=== PATIENT | male | born 1950 | race Caucasian/White ===

== ENCOUNTER 2018-07-28 07:11 | Inpatient (IN) | payer OTHER ==
[~2018-07-28] VITALS: Ht 170.2 cm; Wt 88.0 kg
[2018-07-28] MEDS ORDERED: PANTOPRAZOLE SODIUM 40 MG VIAL ONE (07:58)
[2018-07-28] MEDS ORDERED: ONDANSETRON 4 MG/2 ML VIAL ONE (07:58)
[2018-07-28] MEDS ORDERED: ONDANSETRON 4 MG/2 ML VIAL IV ONE (08:00)
[2018-07-28] MEDS ORDERED: IV NORMAL SALINE 1000 ML BAG IV ONE (08:00)
[2018-07-28] MEDS ORDERED: PANTOPRAZOLE SODIUM 40 MG VIAL IV ONE (08:00)
[2018-07-28] MEDS ORDERED: TRAZ-182 PO (08:15)
[2018-07-28] MEDS ORDERED: CITA10TA17 PO (08:15)
[2018-07-28] MEDS ORDERED: CETI-102 PO (08:15)
[2018-07-28] MEDS ORDERED: PANT40TA2 PO (08:15)
[2018-07-28] MEDS ORDERED: ALBU6.7H IH (08:15)
[2018-07-28] MEDS ORDERED: FURO-152 PO (08:15)
[2018-07-28] MEDS ORDERED: INSU100I4 SQ ×2 (08:15)
[2018-07-28] MEDS ORDERED: CLON1PAT TD (08:15)
[2018-07-28] MEDS ORDERED: CARV12.52 PO (08:15)
[2018-07-28] MEDS ORDERED: CHOL200013 PO (08:15)
[2018-07-28] MEDS ORDERED: GABA-534 PO (08:15)
[2018-07-28] MEDS ORDERED: LISI40TA4 PO (08:15)
[2018-07-28] MEDS ORDERED: HYDR-4076 PO (08:15)
[2018-07-28] MEDS ORDERED: METO-295 PO (08:15)
[2018-07-28] MEDS ORDERED: CLOB15CR10 TOP (08:15)
[2018-07-28] MEDS ORDERED: ASCO500C18 PO (08:15)
[2018-07-28] MEDS ORDERED: SUCR1TAB31 PO (08:15)
[2018-07-28] MEDS ORDERED: INSU100C SQ (08:15)
[2018-07-28] MEDS ORDERED: AMLO10TA6 PO (08:15)
[2018-07-28] MEDS ORDERED: DIPH50CA37 PO (08:15)
[2018-07-28] MEDS ORDERED: MAGN400O6 PO (08:15)
[2018-07-28] MEDS ORDERED: ATOR80TA PO (08:15)
[2018-07-28] MEDS ORDERED: CLOP75TA15 PO (08:15)
[2018-07-28] MEDS ORDERED: ASPI81TA31 PO (08:15)
[2018-07-28] MEDS ORDERED: DOCU-141 PO (08:15)
[2018-07-28] MEDS ORDERED: MORP15TA PO (08:15)
[2018-07-28] MEDS ORDERED: ONDA4TAB5 PO (08:15)
[2018-07-28] MEDS ORDERED: FERR325T22 PO (08:15)
[2018-07-28 08:16] LABS: BASOPHILS # (AUTO) 0.1 K/uL (0.0-8.0); BASOPHILS % (AUTO) 0.4 % (0.0-2.0); HEMOGLOBIN 13.4 g/dL (12.5-16.3); LYMPHOCYTES # (AUTO) 1.3 K/uL (20.0-40.0); LYMPHOCYTES % (AUTO) 6.5 % (20.5-51.5); MEAN CORPUSCULAR HEMOGLOBIN 28.7 uug (23.8-33.4); MEAN CORPUSCULAR HGB CONC 34 g/dL (32.5-36.3); MEAN CORPUSCULAR VOLUME 83.6 fL (73.0-96.2); MONOCYTES # (AUTO) 1.5 K/uL (2.0-10.0); MONOCYTES % (AUTO) 7.5 % (0.0-11.0); NEUTROPHILS # (AUTO) 17.3 K/uL (1.8-8.9); NEUTROPHILS % (AUTO) 85.6 % (38.5-71.5); PLATELET COUNT (AUTO) 351 K/uL (152-348); RED BLOOD CELL COUNT(AUTO) 4.67 MIL/uL (4.06-5.63); WHITE BLOOD COUNT (AUTO) 20.2 K/uL (3.6-10.2)
--- NOTE | 2018-07-28 08:21 | NUR ---
PT SAYS THAT HE FEELS MUCH BETTER.
[2018-07-28 08:24] LABS: CREATININE 1.8 mg/dL (0.6-1.3); POTASSIUM 3.8 mmol/L (3.5-5.1)
[2018-07-28 08:30] LABS: BILIRUBIN,DIRECT 0.1 mg/dL (0.0-0.2); BILIRUBIN,TOTAL 0.4 mg/dL (0.2-1.0); TOTAL PROTEIN, SERUM 9.2 g/dL (6.4-8.2)
[2018-07-28] MEDS ORDERED: INSULIN REGULAR, HUMAN 300 UNIT/3 ML VIAL IV ONE (08:30)
[2018-07-28] MEDS ORDERED: INSULIN REGULAR, HUMAN 300 UNIT/3 ML VIAL ONE (08:39)
[2018-07-28] MEDS ORDERED: ONDANSETRON 4 MG/2 ML VIAL IV PRN ×2 (10:15→15:45)
[2018-07-28] MEDS ORDERED: ACETAMINOPHEN 650 MG/20.3 ML LIQUID UDC PO PRN (10:15)
[2018-07-28] MEDS ORDERED: DEXTROSE 50% 50 ML DISP.SYRIN IV PRN (10:15)
[2018-07-28] MEDS ORDERED: ALBUTEROL SULFATE 8 GM HFA.AER.AD IH SCH (10:15)
--- NOTE | 2018-07-28 10:22 | NUR ---
KO=[id number]
--- NOTE | 2018-07-28 10:30 | NUR ---
Pt admitted to Telemetry unit in fair condition. Admitted for Upper GI Bleed under the care of Dr. Peraza from [facility]. CC nausea and vomiting x5 days and coffee ground emesis last night. No episode of vomiting since arrival to unit, just nausea with episodes of spitting up saliva. On 2L via n/c O2 satting at 98%. Noted with generalized tattoos, several scabbed over rashes on diana lower extremities. All safety precautions in place at this time. Oriented to unit, room, and call light in Canadian via staff translation. Will continue to monitor for change.
--- NOTE | 2018-07-28 10:31 | NUR ---
PT TRANSFERED TO FLOOR IN STABLE CONDITION.
[2018-07-28] MEDS ORDERED: ALBUTEROL SULFATE 2.5 MG/3 ML NEBU NEB PRN (10:45)
[2018-07-28] MEDS: IV D5 1/2 NS 1000 ML 1,000 ML IV PRN (11:19)
[2018-07-28 11:21] VITALS: BP 134/87
[2018-07-28] MEDS: BLOOD SUGAR DIAGNOSTIC 1 EACH STRIP VI SCH ×3 (11:34→21:00)
[2018-07-28] MEDS: SUCRALFATE 1 G TABLET PO SCH ×3 (11:42→20:59)
[2018-07-28] MEDS ORDERED: SIMETHICONE 80 MG TAB.CHEW PO PRN (12:30)
--- NOTE | 2018-07-28 12:30 | NUR ---
Pt FSBS result 202mg/dl. Offered the 6units Regular Insulin coverage per s/s. Pt refused. Per pt he will not eat lunch as he cannot tolerate it right now due to his nausea. Will administer Zofran IV.
[2018-07-28] MEDS: GABAPENTIN 300 MG CAPSULE PO SCH ×2 (13:39→16:40)
--- NOTE | 2018-07-28 14:54 | NUR ---
Pt seen and examined by Lynne Ivy NP with new orders noted and carried out.
[2018-07-28] MEDS ORDERED: MAGNESIUM CITRATE 296 ML BOTTLE PO STA (15:18)
[2018-07-28] MEDS ORDERED: POLYETHYLENE GLYCOL 3350 238 GM POWDER PO STA (15:25)
[2018-07-28] MEDS ORDERED: FLEET ENEMA 133 ML BOTTLE RC PRN (15:30)
[2018-07-28] MEDS ORDERED: METOCLOPRAMIDE HCL 10 MG/2 ML VIAL IV PRN (15:30)
[2018-07-28 15:49] VITALS: BP 160/79
[2018-07-28] MEDS ORDERED: GOLYTELY 4000 ML BOTTLE PO ONE (16:00)
--- NOTE | 2018-07-28 17:00 | NUR ---
Notified pt that his FSBS result is 263 for 9 units Regular Insulin coverage. Pt refused the insulin as he doesn't think he will eat any of his clear liquid dinner. Will monitor for s/s of hypo/hyperglycemia.
[2018-07-28] MEDS: CARVEDILOL 12.5 MG TABLET PO SCH (17:36)
[2018-07-28] MEDS: CLOBETASOL PROPIONATE 0.05% CREAM 15 GM TUBE TOP SCH (17:37)
[2018-07-28 19:28] VITALS: BP 136/71
--- NOTE | 2018-07-28 20:00 | NUR ---
Received pt sitting up in bed. Alert and oriented x3. Ukrainian speaking. Left sided weakness noted. Tele SR with HR 80. O2 sat 96% via 2L NC. Pt complains of nausea but no emesis present. Pt aware of EGD and colonoscopy procedure in AM, consent is signed. NPO after midnight noted. Pt denies pain, SOB or severe headache. Safety precautions and comfort measures implemented. Bed on low locked position. Tyrone light within reach. Will continue to monitor closely.
[2018-07-28] MEDS ORDERED: hydrALAZINE HCL 25 MG TABLET PO PRN (20:45)
[2018-07-28] MEDS: ATORVASTATIN 40 MG TABLET PO SCH (20:59)
[2018-07-28] MEDS ORDERED: TRAZODONE 50 MG TABLET PO SCH (21:00)
[2018-07-28] MEDS: INSULIN REGULAR, HUMAN 300 UNITS/3 ML VIAL SQ PRN (21:02)
--- NOTE | 2018-07-28 23:30 | NUR ---
Pt awake, alert and oriented x3. Tele SR with HR of 80. O2 sat 96% NC 2L.Pt continues to complain of nausea, no presence of emesis noted. Zofran med was given x1 with minimal effect. Pt is unable to tolerate magnesium citrate and polyethylene glycol due to nausea. Dr. WORTHINGTON notified, awaiting call back. Will continue to monitor. Addendum: 07/29/18 at 0605 by SHIRLENE EDWARDS RN At 0030, followed up call from Dr. Worthington. Awaiting call back. Will continue to monitor pt.
[2018-07-28 23:46] VITALS: BP 157/85
[2018-07-29 00:55] VITALS: BP 111/72
[2018-07-29 00:57] VITALS: BP 138/84
[2018-07-29 03:43] VITALS: BP 144/71
[2018-07-29 04:37] LABS: *BILIRUBIN,URIN NEGATIVE (NEGATIVE); *BLOOD, URINE NEGATIVE (NEGATIVE); *COLOR,URINE YELLOW (YELLOW); *KETONES,URINE NEGATIVE (NEGATIVE); *PROTEIN,URINE NEGATIVE (NEGATIVE); *UROBILINOGEN,URINE 0.2 E.U./dl (NORMAL); LEUKOCYTE ESTERASE ,URINE 1+ (NEGATIVE); NITRITE, URINE NEGATIVE (NEGATIVE); PH,URINE 6.5 (5.0-8.0)
[2018-07-29 04:41] LABS: *CLARITY,URINE HAZY (CLEAR); UGLUCOSE 1+ (NEGATIVE)
[2018-07-29 04:58] LABS: BACTERIA,URINE FEW /HPF (NONE SEEN); RBC,URINE 0-3 /HPF (0-3); RENAL EPITHELIAL CELLS,URINE FEW /LPF (NONE SEEN); SQUAMOUS EPITHELIAL CELL,UR MODERATE /HPF (NONE SEEN)
[2018-07-29 04:59] LABS: TRANSITIONAL EPI CELLS,URINE FEW /LPF (NONE SEEN)
--- NOTE | 2018-07-29 06:05 | NUR ---
Still awaiting call back from Dr. MCGRAW regarding noncompliance to bowel prep for EGD and colonoscopy in the AM. Pt slept intermittently throughout the night. Tele noted to be SR with Hr 64. O2 sat 97% via 2l NC. Pt denies pain or SOB. Blood pressure controlled during the night. Pt shows no s/s of acute distress at this time. Safety precautions maintained during shift. Call light within reach. Will endorse plan of care to upcoming nurse.
[2018-07-29] MEDS: SUCRALFATE 1 G TABLET PO SCH (06:59)
[2018-07-29 07:03] LABS: BASOPHILS % (AUTO) 0.3 % (0.0-2.0); EOSINOPHILS # (AUTO) 0.1 K/uL (0.0-0.7); HEMATOCRIT 34.7 % (36.7-47.1); HEMOGLOBIN 11.8 g/dL (12.5-16.3); LYMPHOCYTES # (AUTO) 2.4 K/uL (20.0-40.0); LYMPHOCYTES % (AUTO) 18.5 % (20.5-51.5); MEAN CORPUSCULAR HEMOGLOBIN 28.4 uug (23.8-33.4); MEAN CORPUSCULAR HGB CONC 34 g/dL (32.5-36.3); MEAN CORPUSCULAR VOLUME 83.7 fL (73.0-96.2); MONOCYTES # (AUTO) 1.3 K/uL (2.0-10.0); MONOCYTES % (AUTO) 9.8 % (0.0-11.0); NEUTROPHILS # (AUTO) 9.2 K/uL (1.8-8.9); NEUTROPHILS % (AUTO) 70.4 % (38.5-71.5); PLATELET COUNT (AUTO) 253 K/uL (152-348); RED BLOOD CELL COUNT(AUTO) 4.15 MIL/uL (4.06-5.63); WHITE BLOOD COUNT (AUTO) 13.1 K/uL (3.6-10.2)
[2018-07-29] MEDS: BLOOD SUGAR DIAGNOSTIC 1 EACH STRIP VI SCH ×4 (07:03→20:33)
[2018-07-29] MEDS: IV D5 1/2 NS 1000 ML 1,000 ML IV PRN (07:12)
[2018-07-29 07:18] LABS: BILIRUBIN,TOTAL 0.5 mg/dL (0.2-1.0); CREATININE 1.7 mg/dL (0.6-1.3); MAGNESIUM 2.7 mg/dL (1.8-2.4); PHOSPHOROUS 4.1 mg/dL (2.5-4.9); POTASSIUM 3.6 mmol/L (3.5-5.1); TOTAL PROTEIN, SERUM 7.5 g/dL (6.4-8.2)
[2018-07-29 07:39] LABS: THYROID STIMULATING HORMONE 2.341 mIU/mL (0.358-3.740)
[2018-07-29] MEDS: CARVEDILOL 12.5 MG TABLET PO SCH ×2 (08:55→17:40)
[2018-07-29] MEDS: PANTOPRAZOLE SODIUM 40 MG VIAL IV SCH ×2 (08:55→17:38)
[2018-07-29] MEDS: AMLODIPINE 10 MG TABLET PO SCH (08:56)
[2018-07-29] MEDS: GABAPENTIN 300 MG CAPSULE PO SCH ×3 (08:56→17:33)
[2018-07-29] MEDS: CLOBETASOL PROPIONATE 0.05% CREAM 15 GM TUBE TOP SCH ×2 (08:56→17:00)
[2018-07-29] MEDS ORDERED: PANTOPRAZOLE SODIUM 40 MG VIAL IV SCH (09:00)
[2018-07-29] MEDS: INSULIN REGULAR, HUMAN 300 UNIT/3 ML VIAL SQ PRN ×2 (09:56→17:24)
[2018-07-29 11:22] VITALS: BP 137/86
[2018-07-29] MEDS ORDERED: FENTANYL CITRATE 100 MCG/2 ML AMPUL ONE (11:43)
[2018-07-29] MEDS ORDERED: MIDAZOLAM HCL 2 MG/2 ML VIAL ONE (11:44)
[2018-07-29] MEDS: CITALOPRAM 10 MG TABLET PO SCH (15:13)
[2018-07-29] MEDS: CEFTRIAXONE 1 G in IV DEXTROSE 5% 50 ML IV SCH (15:13)
[2018-07-29 15:38] VITALS: BP 133/62
[2018-07-29] MEDS ORDERED: PROPOFOL 200 MG/20 ML BOTTLE IV ONE (16:09)
[2018-07-29] MEDS: SUCRALFATE 1 G/10 ML LIQUID UDC PO SCH ×2 (17:33→20:32)
--- NOTE | 2018-07-29 19:45 | NUR ---
Received patient in bed, awake, alert and oriented x4. Speech is clear, normal rate and able to make known of his needs. Complained of pain in the abdomen 5/10, aching. Medicated with [place] 1 tab. SR on the monitor. Vital sign WNL. Compliant with all PO medication. Will continue to monitor behavior and medication effectiveness.
[2018-07-29 20:22] VITALS: BP 139/66
[2018-07-29] MEDS: ATORVASTATIN 40 MG TABLET PO SCH (20:32)
[2018-07-29] MEDS: MUPIROCIN 2% OINT 22 GM TUBE NS SCH (20:56)
[2018-07-29] MEDS ORDERED: TRAZODONE 50 MG TABLET PO SCH (21:00)
[2018-07-29] MEDS: INSULIN REGULAR, HUMAN 300 UNITS/3 ML VIAL SQ PRN (21:00)
[2018-07-29] MEDS: HYDROCODONE/APAP 5-325MG TABLET PO PRN (21:02)
[2018-07-30 00:03] VITALS: BP 156/68
[2018-07-30] MEDS: HYDROCODONE/APAP 5-325MG TABLET PO PRN (03:22)
[2018-07-30 04:12] VITALS: BP 149/81
--- NOTE | 2018-07-30 05:17 | NUR ---
Assumed care from Nurse Bryant; no change from previous assessment; needs attended; continue to monitor; continue plan of care.
[2018-07-30 06:46] LABS: BASOPHILS % (AUTO) 0.3 % (0.0-2.0); EOSINOPHILS # (AUTO) 0.2 K/uL (0.0-0.7); EOSINOPHILS % (AUTO) 1.2 % (0.0-7.0); HEMATOCRIT 32.7 % (36.7-47.1); LYMPHOCYTES # (AUTO) 1.9 K/uL (20.0-40.0); LYMPHOCYTES % (AUTO) 15.3 % (20.5-51.5); MEAN CORPUSCULAR HEMOGLOBIN 28.3 uug (23.8-33.4); MEAN CORPUSCULAR HGB CONC 34 g/dL (32.5-36.3); MEAN CORPUSCULAR VOLUME 83.9 fL (73.0-96.2); MONOCYTES # (AUTO) 1.1 K/uL (2.0-10.0); MONOCYTES % (AUTO) 8.9 % (0.0-11.0); NEUTROPHILS # (AUTO) 9.1 K/uL (1.8-8.9); NEUTROPHILS % (AUTO) 74.3 % (38.5-71.5); PLATELET COUNT (AUTO) 231 K/uL (152-348); RED BLOOD CELL COUNT(AUTO) 3.89 MIL/uL (4.06-5.63); WHITE BLOOD COUNT (AUTO) 12.3 K/uL (3.6-10.2)
[2018-07-30] MEDS: BLOOD SUGAR DIAGNOSTIC 1 EACH STRIP VI SCH ×2 (06:46→11:34)
[2018-07-30] MEDS: SUCRALFATE 1 G/10 ML LIQUID UDC PO SCH ×3 (06:46→16:07)
[2018-07-30 06:50] LABS: CREATININE 1.7 mg/dL (0.6-1.3); POTASSIUM 3.6 mmol/L (3.5-5.1)
--- NOTE | 2018-07-30 07:39 | NUR ---
RECEIVED PATIENT ON BED, RESTING COMFORTABLY. NO DISTRESS NOTED.
[2018-07-30] MEDS: INSULIN REGULAR, HUMAN 300 UNIT/3 ML VIAL SQ PRN ×2 (08:17→11:43)
[2018-07-30] MEDS: PANTOPRAZOLE SODIUM 40 MG VIAL IV SCH (08:23)
[2018-07-30] MEDS: GABAPENTIN 300 MG CAPSULE PO SCH ×2 (08:24→13:30)
[2018-07-30] MEDS: CITALOPRAM 10 MG TABLET PO SCH (08:24)
[2018-07-30] MEDS: CARVEDILOL 12.5 MG TABLET PO SCH (08:25)
[2018-07-30] MEDS: CLOBETASOL PROPIONATE 0.05% CREAM 15 GM TUBE TOP SCH (08:26)
[2018-07-30] MEDS: MUPIROCIN 2% OINT 22 GM TUBE NS SCH (08:26)
[2018-07-30] MEDS: AMLODIPINE 10 MG TABLET PO SCH (08:29)
[2018-07-30 11:21] VITALS: BP 121/77
[2018-07-30] MEDS: IV D5 1/2 NS 1000 ML 1,000 ML IV PRN (11:30)
[2018-07-30] MEDS: CEFTRIAXONE 1 G in IV DEXTROSE 5% 50 ML IV SCH (11:30)
--- NOTE | 2018-07-30 12:00 | NUR ---
AWARE ORDER FOR DISCHARGE, REQUESTED TO EAT LUNCH AND SEE HOW IT WOULD BE, AGREED TO MONITOR.
[2018-07-30] MEDS ORDERED: INFLUENZA VACCINE 2018-2019 0.5 ML DISP.SYRIN IM ONE (14:45)
[2018-07-30] MEDS ORDERED: FLEET ENEMA 133 ML BOTTLE RC STA (14:54)
--- NOTE | 2018-07-30 15:00 | NUR ---
TOLERATED LUNCH, NO COMPLAINT OF NAUSEA, VOMITING. AGREED TO BE DISCHARGED.
[2018-07-30 15:09] VITALS: BP 131/70
--- NOTE | 2018-07-30 15:27 | NUR ---
SEEN BY SANJIV , AWARE SMALL BM BROWN COLOR TODAY. MADE ORDER AND CARRIED OUT
--- NOTE | 2018-07-30 15:48 | NUR ---
HAD MODERATE FORMED BM YELLOW BROWN IN COLOR.
--- NOTE | 2018-07-30 16:10 | NUR ---
LEFT IN FAIR CONDITION , DENIES ACUTE DISTRESS, ANXIOUS TO GO BACK TO ACUTE REHAB.
[2018-07-30] MEDS ORDERED: PANTOPRAZOLE SODIUM 40 MG TABLET.DR PO SCH (16:30)
== END 2018-07-30 16:10 | DRG 242 ==
LOC: ER 07:11 → TELE 10:24 → UNDODISIN 07-30 15:00
PROC: 0DB78ZX Excision of Stomach, Pylorus, Via Natural or Artificial Opening Endoscopic, Diagnostic (ICD-10-PCS; principal; 2018-07-29 11:49)
PROC: 0DB28ZX Excision of Middle Esophagus, Via Natural or Artificial Opening Endoscopic, Diagnostic (ICD-10-PCS; principal; 2018-07-29 11:49)
PROC: 0DB48ZX Excision of Esophagogastric Junction, Via Natural or Artificial Opening Endoscopic, Diagnostic (ICD-10-PCS; principal; 2018-07-29 11:49)
PROC: 0DB98ZX Excision of Duodenum, Via Natural or Artificial Opening Endoscopic, Diagnostic (ICD-10-PCS; principal; 2018-07-29 11:49)
DX: B37.81 Candidal esophagitis (principal); N17.0 Acute kidney failure with tubular necrosis; K59.00 Constipation, unspecified; K92.0 Hematemesis; I50.9 Heart failure, unspecified; I69.354 Hemiplegia and hemiparesis following cerebral infarction affecting left non-dominant side; K31.7 Polyp of stomach and duodenum; Z22.322 Carrier or suspected carrier of Methicillin resistant Staphylococcus aureus; M51.36 Other intervertebral disc degeneration, lumbar region; I11.0 Hypertensive heart disease with heart failure; K29.50 Unspecified chronic gastritis without bleeding; B96.81 Helicobacter pylori [H. pylori] as the cause of diseases classified elsewhere; I70.0 Atherosclerosis of aorta; I25.10 Atherosclerotic heart disease of native coronary artery without angina pectoris; E78.5 Hyperlipidemia, unspecified; E11.65 Type 2 diabetes mellitus with hyperglycemia; J98.11 Atelectasis; K80.20 Calculus of gallbladder without cholecystitis without obstruction; D72.829 Elevated white blood cell count, unspecified; Z99.3 Dependence on wheelchair; Z79.899 Other long term (current) drug therapy; Z79.4 Long term (current) use of insulin; Z79.02 Long term (current) use of antithrombotics/antiplatelets; Z79.82 Long term (current) use of aspirin; E11.51 Type 2 diabetes mellitus with diabetic peripheral angiopathy without gangrene
CPT/HCPCS: 36415; 70030-TC; 71045; 83690; 83735; 84100; 84443; 85025; 85730; 86850; 86900; 86901; 88342; 90686; 93005; 97165; A4217; A4663; C9113; G0378; J0696; J1815; J2250; J2405; J3010; J3490; J7030; J7060

== ENCOUNTER 2018-11-11 20:51 | Inpatient (IN) | payer MEDICAID, OTHER ==
[~2018-11-11] VITALS: Ht 170.2 cm; Wt 93.0 kg
[~2018-11-11 20:51] MED LIST: ALBU6.7H IH; AMLO10TA7 PO; ASCO500C18 PO; ASPI81TA31 PO; ATOR80TA PO; CARV12.52 PO; CETI-102 PO; CHOL200013 PO; CITA10TA17 PO; CLOB15CR10 TOP; CLON1PAT TD; CLOP75TA15 PO; DIPH50CA37 PO; DOCU-141 PO; FERR325T22 PO; FURO-152 PO; GABA-534 PO; HYDR-4076 PO; INSU100C SQ; INSU100I4 SQ; LISI40TA4 PO; MAGN400O6 PO; METO-295 PO; MORP15TA PO; ONDA4TAB5 PO; PANT40TA2 PO; SUCR1TAB31 PO; TRAZ-182 PO
--- NOTE | 2018-11-11 21:00 | NUR ---
Pt. BIB EMS for 6 cm circular R upper back mass, A/Ox4, pt. is Belarusian speaking, denies CP/BECKHAM/F/C/N/V,
[2018-11-11 21:21] LABS: BASOPHILS # (AUTO) 0.1 K/uL (0.0-8.0); BASOPHILS % (AUTO) 0.5 % (0.0-2.0); EOSINOPHILS # (AUTO) 0.4 K/uL (0.0-0.7); EOSINOPHILS % (AUTO) 3.4 % (0.0-7.0); HEMATOCRIT 36.2 % (36.7-47.1); HEMOGLOBIN 12.2 g/dL (12.5-16.3); LYMPHOCYTES # (AUTO) 2.1 K/uL (20.0-40.0); LYMPHOCYTES % (AUTO) 16.1 % (20.5-51.5); MEAN CORPUSCULAR HEMOGLOBIN 27.4 uug (23.8-33.4); MEAN CORPUSCULAR HGB CONC 34 g/dL (32.5-36.3); MEAN CORPUSCULAR VOLUME 81.3 fL (73.0-96.2); MONOCYTES % (AUTO) 7.7 % (0.0-11.0); NEUTROPHILS # (AUTO) 9.4 K/uL (1.8-8.9); NEUTROPHILS % (AUTO) 72.3 % (38.5-71.5); PLATELET COUNT (AUTO) 229 K/uL (152-348); RED BLOOD CELL COUNT(AUTO) 4.46 MIL/uL (4.06-5.63)
[2018-11-11 21:25] LABS: CARBON DIOXIDE 29 mmol/L (21-32); CHLORIDE 99 mmol/L (98-107); CREATININE 0.9 mg/dL (0.6-1.3); GLUCOSE 262 mg/dL (74-106); POTASSIUM 4.1 mmol/L (3.5-5.1); UREA NITROGEN, BLOOD 17 mg/dL (7-18)
[2018-11-11] MEDS ORDERED: HYDR-4384 PO (21:25)
[2018-11-11] MEDS ORDERED: HALO15OI4 TP (21:25)
[2018-11-11] MEDS ORDERED: EMOL1CRE TP (21:25)
[2018-11-11] MEDS ORDERED: ACET325C5 PO (21:27)
[2018-11-11 21:31] LABS: ALANINE AMINOTRANSFERASE 68 U/L (16-63); ALKALINE PHOSPHATASE 193 U/L (50-136); ASPARTATE AMINOTRANSFERASE 26 U/L (15-37); BILIRUBIN,DIRECT < 0.1 mg/dL (0.0-0.2); BILIRUBIN,TOTAL 0.3 mg/dL (0.2-1.0); TOTAL PROTEIN, SERUM 7.7 g/dL (6.4-8.2)
--- NOTE | 2018-11-11 21:50 | NUR ---
Dr. Tabor in w/ pt., for ultrasound,
--- NOTE | 2018-11-11 22:11 | NUR ---
Pt. is wheezing, per Dr. Tabor called respiratory for breathing treatment,
[2018-11-11] MEDS ORDERED: MAGNESIUM SULFATE 2 GM in IV DEXTROSE 5% 100 ML IV ONE (22:15)
[2018-11-11] MEDS ORDERED: ALBUTEROL SULFATE 2.5 MG/3 ML NEBU NEB ONE (22:15)
[2018-11-11] MEDS ORDERED: methylPREDNISolone SOD SUCC 125 MG/2 ML VIAL IV ONE (22:15)
[2018-11-11] MEDS ORDERED: IPRATROPIUM BROMIDE 0.5 MG/2.5 ML NEBU NEB ONE (22:15)
[2018-11-11] MEDS ORDERED: ALBUTEROL SULFATE 2.5 MG/ 0.5 ML NEBU ONE (22:17)
[2018-11-11] MEDS ORDERED: IPRATROPIUM BROMIDE 0.5 MG/2.5 ML NEBU ONE (22:17)
--- NOTE | 2018-11-11 22:29 | NUR ---
RT at bedside for inhalation treatment,
[2018-11-11] MEDS ORDERED: methylPREDNISolone SOD SUCC 125 MG/2 ML VIAL ONE (22:42)
[2018-11-11] MEDS ORDERED: MAGNESIUM SULFATE 1 GM/2 ML VIAL ONE (22:42)
[2018-11-11] MEDS ORDERED: hydrALAZINE HCL 25 MG TABLET PO SCH (23:00)
[2018-11-11] MEDS ORDERED: ONDANSETRON 4 MG/2 ML VIAL IV PRN (23:15)
[2018-11-11] MEDS ORDERED: ACETAMINOPHEN 325 MG TABLET PO PRN (23:15)
[2018-11-11] MEDS ORDERED: DEXTROSE 50% 50 ML DISP.SYRIN IV PRN (23:15)
[2018-11-11] MEDS ORDERED: TEMAZEPAM 15 MG CAPSULE PO PRN (23:15)
[2018-11-11] MEDS ORDERED: Z GUARD REMEDY PASTE 57 GM TUBE TOP PRN (23:15)
[2018-11-11] MEDS ORDERED: MAGNESIUM HYDROXIDE 30 ML LIQUID UDC PO PRN (23:15)
[2018-11-11] MEDS ORDERED: HYDROCODONE/APAP 5-325MG TABLET PO PRN (23:15)
--- NOTE | 2018-11-12 00:20 | NUR ---
Report given to Ivanna
[2018-11-12 00:39] VITALS: BP 172/90
--- NOTE | 2018-11-12 01:14 | NUR ---
Pt. taken off off unit via stretcher by [place] to admit to med/surg, NAD, IV intact - no s/s infection,
[2018-11-12] MEDS: IV NS 1000 ML 1,000 ML IV PRN ×2 (01:53→17:29)
--- NOTE | 2018-11-12 02:00 | NUR ---
PATIENT ADMITTED FROM ER VIA RNEY. A/O X4. POLISH SPEAKING BUT ABLE TO MAKE SIMPLE NEEDS KNOWN. DENIES PAIN AT THIS TIME. PATIENT IS PRESENT WITH GENERALIZED RASH, BILATERAL LEGS NOTED WITH SCRATCHES AND SCABS FROM ITCHING. "PER PATIENT, HE STATED THAT WHERE HE CAME FROM, ALL THE RESIDENTS HAVE RASHES TOO AND ARE ITCHING." NOTIFIED NUTTER UP AND ENERGY PROJECTS LEAD. PATIENT PLACED ON CONTACT ISOLATION. PATIENT ON RA SATING 96%. DENIES ANY SOB. ORIENTED TO ROOM AND CALL LIGHT. CALL LIGHT IN REACH. ALL NEEDS ATTENDED. WILL CONTINUE TO MONITOR AND ASSESS.
--- NOTE | 2018-11-12 02:15 | NUR ---
PATIENTS BLOOD PRESSURE 172/90. ALL OTHER VSS. CALLED OUT TO [facility]-DOCTOR OF RADIOLOGY FOR FURTHER ORDERS. PATIENT PLACED ON TELE ORDERED, SR 90'S. WILL CONTINUE TO MONITOR AND ASSESS.
[2018-11-12] MEDS: methylPREDNISolone SOD SUCC 40 MG/ML VIAL IV SCH ×3 (02:18→12:38)
[2018-11-12] MEDS: hydrALAZINE HCL 20 MG/1 ML VIAL IV PRN (02:20)
--- NOTE | 2018-11-12 02:20 | NUR ---
PATIENT GIVEN HYDRALAZINE 10MG IVP PER HOME SERVICE TECHNICIAN FOR BP 172/90. WILL CONTINUE TO MONITOR AND ASSESS.
[2018-11-12] MEDS: ALBUTEROL SULFATE 2.5 MG/ 0.5 ML NEBU NEB PRN ×2 (03:09→23:07)
[2018-11-12] MEDS: IPRATROPIUM BROMIDE 0.5 MG/2.5 ML NEBU NEB PRN ×2 (03:09→23:07)
[2018-11-12] MEDS: MORPHINE SULFATE 4 MG/1 ML DISP.SYRIN IV PRN (03:24)
[2018-11-12 05:36] VITALS: BP 150/76
--- NOTE | 2018-11-12 06:35 | NUR ---
PATIENT AWAKE IN BED. VSS. CHECKED BLOOD SUGAR. RECEIVED 404. CALLED LAB FOR STAT REPEAT DRAW.
[2018-11-12] MEDS: BLOOD SUGAR DIAGNOSTIC 1 EACH STRIP VI SCH ×4 (06:47→20:59)
--- NOTE | 2018-11-12 06:56 | NUR ---
WAITING FOR LAB DRAW RESULTS. HAZARD WASTE HANDLER NOTIFIED.
[2018-11-12 06:58] LABS: BASOPHILS % (AUTO) 0.2 % (0.0-2.0); HEMATOCRIT 35.7 % (36.7-47.1); HEMOGLOBIN 12.1 g/dL (12.5-16.3); LYMPHOCYTES % (AUTO) 7.6 % (20.5-51.5); MEAN CORPUSCULAR HEMOGLOBIN 27.5 uug (23.8-33.4); MEAN CORPUSCULAR HGB CONC 34 g/dL (32.5-36.3); MEAN CORPUSCULAR VOLUME 81.3 fL (73.0-96.2); MONOCYTES # (AUTO) 0.1 K/uL (2.0-10.0); MONOCYTES % (AUTO) 0.6 % (0.0-11.0); NEUTROPHILS # (AUTO) 12.2 K/uL (1.8-8.9); NEUTROPHILS % (AUTO) 91.6 % (38.5-71.5); PLATELET COUNT (AUTO) 223 K/uL (152-348); RED BLOOD CELL COUNT(AUTO) 4.39 MIL/uL (4.06-5.63); WHITE BLOOD COUNT (AUTO) 13.3 K/uL (3.6-10.2)
--- NOTE | 2018-11-12 07:16 | NUR ---
CALLED LAB FOR STAT RESULTS OF BLOOD GLUCOSE. PER SUPERVISORY CIVIL ENGINEER, BLOOD IS STILL RUNNING AND WILL CALL BACK WITH RESULTS. NOTIFIED THIRD LOADER THAT INSULIN HAS NOT BEEN GIVEN, WAITING FOR RESULTS. PATIENT AWAKE IN BED, ASYMPTOMATIC. ENDORSED TO RN.
[2018-11-12 07:27] LABS: BILIRUBIN,TOTAL 0.3 mg/dL (0.2-1.0); MAGNESIUM 2.4 mg/dL (1.8-2.4); PHOSPHOROUS 3.6 mg/dL (2.5-4.9); POTASSIUM 4.3 mmol/L (3.5-5.1); TOTAL PROTEIN, SERUM 7.6 g/dL (6.4-8.2)
[2018-11-12] MEDS: CETIRIZINE HCL 10 MG TABLET PO SCH (08:33)
[2018-11-12] MEDS: GABAPENTIN 300 MG CAPSULE PO SCH ×3 (08:34→17:02)
[2018-11-12] MEDS: AMLODIPINE 10 MG TABLET PO SCH (08:34)
[2018-11-12 08:35] VITALS: BP 156/75
[2018-11-12] MEDS: ASPIRIN 81 MG TAB.CHEW PO SCH (08:35)
[2018-11-12] MEDS: CARVEDILOL 12.5 MG TABLET PO SCH ×2 (08:35→17:03)
[2018-11-12] MEDS: INSULIN REGULAR, HUMAN 300 UNIT/3 ML VIAL SQ PRN ×3 (08:37→16:55)
[2018-11-12] MEDS: SUCRALFATE 1 G TABLET PO SCH ×4 (08:42→20:53)
[2018-11-12] MEDS: CITALOPRAM 10 MG TABLET PO SCH (08:42)
[2018-11-12] MEDS ORDERED: INSU100V7 SQ ×2 (08:57)
[2018-11-12] MEDS ORDERED: PANTOPRAZOLE SODIUM 40 MG VIAL IV SCH (09:00)
[2018-11-12] MEDS: INSULIN GLARGINE,HUM 300 UNITS/3 ML CARTRIDGE SQ SCH (09:37)
[2018-11-12 11:50] VITALS: BP 131/60
--- NOTE | 2018-11-12 12:54 | NUR ---
COLLECTED SKIN SCRAPING SPECIMEN, SENT TO LABS
[2018-11-12 15:21] VITALS: BP 144/69
[2018-11-12] MEDS: diphenhydrAMINE 1% CREAM 28.3 GM TUBE TP PRN ×2 (17:01→21:21)
[2018-11-12] MEDS: CEphaleXIN 500 MG CAPSULE PO SCH ×2 (17:02→21:07)
--- NOTE | 2018-11-12 18:58 | NUR ---
RECEIVED PATIENT AO2 WITH IV AT RIGHT HAND WITH G20 WITH NS AT 75ML/HR ON CONTACT ISOLATION , PATIENT HAD SKIN SCRAPPING DONE BY DR. GARCIA, AND SPECIMEN WAS SENT TO LABS, PATIENT WERE COMPLIANT TO MEDICATION, AND SPEAK AND NEEDED INFORMATION TECHNOLOGY TEACHER , KEPT COMFORTABLE , HOB ELEVATED AT ALL TIMES, ALL NEEDS MET WILL CONTINUE MONITOR
--- NOTE | 2018-11-12 19:30 | NUR ---
Received patient awake in bed, noted with air mattress in place. Patient is alert and oriented x 4 but speaks Hungarian only. Patient has an IV access at the right hand to ongoing IV fluid, infusing well. Patient on contact isolation, r/o scabies, skin scrape specimen was sent this morning. Noted rashes, scratch dempsey on both legs and scar was seen at sacral area. Noted sinus rhythm on tele monitor. Per day shift, patient had elevated blood sugars all day and is on aggressive insulin sliding scale. Bed in low position, locked, side rails up x 2, call light within reach. Noise and lights subdued. Will continue to monitor.
[2018-11-12 20:25] VITALS: BP 152/86
[2018-11-12] MEDS: TRAZODONE 50 MG TABLET PO SCH (20:53)
[2018-11-12] MEDS: ATORVASTATIN 40 MG TABLET PO SCH (20:53)
[2018-11-12] MEDS: INSULIN REGULAR, HUMAN 300 UNITS/3 ML VIAL SQ PRN (21:00)
[2018-11-12] MEDS ORDERED: INSULIN GLARGINE,HUM 300 UNITS/3 ML CARTRIDGE SQ SCH (21:00)
[2018-11-13 00:06] VITALS: BP 140/72
[2018-11-13] MEDS: MORPHINE SULFATE 4 MG/1 ML DISP.SYRIN IV PRN ×4 (01:08→21:06)
[2018-11-13 05:51] LABS: BASOPHILS % (AUTO) 0.1 % (0.0-2.0); HEMATOCRIT 33.4 % (36.7-47.1); HEMOGLOBIN 11.1 g/dL (12.5-16.3); LYMPHOCYTES # (AUTO) 1.4 K/uL (20.0-40.0); LYMPHOCYTES % (AUTO) 9.4 % (20.5-51.5); MEAN CORPUSCULAR HGB CONC 33 g/dL (32.5-36.3); MEAN CORPUSCULAR VOLUME 81.4 fL (73.0-96.2); MONOCYTES % (AUTO) 6.8 % (0.0-11.0); NEUTROPHILS # (AUTO) 12.3 K/uL (1.8-8.9); NEUTROPHILS % (AUTO) 83.7 % (38.5-71.5); PLATELET COUNT (AUTO) 213 K/uL (152-348); RED BLOOD CELL COUNT(AUTO) 4.11 MIL/uL (4.06-5.63); WHITE BLOOD COUNT (AUTO) 14.7 K/uL (3.6-10.2)
[2018-11-13 05:52] VITALS: BP 140/69
[2018-11-13 06:14] LABS: MAGNESIUM 2.3 mg/dL (1.8-2.4); PHOSPHOROUS 3.7 mg/dL (2.5-4.9); POTASSIUM 4.2 mmol/L (3.5-5.1)
[2018-11-13] MEDS: CEphaleXIN 500 MG CAPSULE PO SCH ×3 (06:15→22:33)
[2018-11-13] MEDS: IV NS 1000 ML 1,000 ML IV PRN ×2 (06:20→21:00)
--- NOTE | 2018-11-13 06:30 | NUR ---
Patient slept intermittently throughout the night. On room air, tolerated. IV access at right hand, still patent and intact. Contact isolation observed. No recurrence of pain after morphine injection. Breathing treatment provided by respiratory therapist as needed.Noted sinus rhythm on tele monitor. Attended all needs. Ensured safety and comfort.
[2018-11-13] MEDS: SUCRALFATE 1 G TABLET PO SCH ×4 (06:33→20:39)
[2018-11-13] MEDS: BLOOD SUGAR DIAGNOSTIC 1 EACH STRIP VI SCH ×4 (06:33→20:46)
--- NOTE | 2018-11-13 07:15 | NUR ---
RECEIVED REPORT FROM SHAKE LOADER NURSE, PATIENT IN BED AWAKE, NO DISTRESS NOTED AT THIS TIME, BED IN LOW POSITION, SIDE RAILS UPX2, BED ALARM ON.
[2018-11-13] MEDS: predniSONE 20 MG TABLET PO SCH (08:52)
[2018-11-13] MEDS: GABAPENTIN 300 MG CAPSULE PO SCH ×3 (09:05→16:42)
[2018-11-13] MEDS: ASPIRIN 81 MG TAB.CHEW PO SCH (09:05)
[2018-11-13] MEDS: PANTOPRAZOLE SODIUM 40 MG TABLET.DR PO SCH (09:05)
[2018-11-13] MEDS: CITALOPRAM 10 MG TABLET PO SCH (09:05)
[2018-11-13] MEDS: CETIRIZINE HCL 10 MG TABLET PO SCH (09:05)
[2018-11-13] MEDS: CARVEDILOL 12.5 MG TABLET PO SCH ×2 (09:10→16:42)
[2018-11-13] MEDS: AMLODIPINE 10 MG TABLET PO SCH (09:10)
[2018-11-13] MEDS: INSULIN REGULAR, HUMAN 300 UNIT/3 ML VIAL SQ PRN ×3 (09:13→16:44)
[2018-11-13] MEDS: INSULIN GLARGINE,HUM 300 UNITS/3 ML CARTRIDGE SQ SCH (09:14)
[2018-11-13 11:42] VITALS: BP 169/86
[2018-11-13] MEDS: POLYVINYL ALCOHOL OPHT DROPS 15 ML BOTTLE EACHEYE PRN (17:04)
[2018-11-13 17:23] VITALS: BP 168/77
--- NOTE | 2018-11-13 18:49 | NUR ---
PATIENT HAS BEEN COOPERATIVE WITH CARE, ALL NEEDS MET, PAIN MEDICATION GIVEN ONCE PATIENT REPORTED BACK PAIN. NO FURTHER DISTRESS THROUGH THE REST OF SHIFT. PATIENT IN BED, BED IN LOW POSITION, SIDE RAILS UP X2. BED ALARM ON.
[2018-11-13] MEDS: ALBUTEROL SULFATE 2.5 MG/ 0.5 ML NEBU NEB PRN (19:00)
[2018-11-13] MEDS: IPRATROPIUM BROMIDE 0.5 MG/2.5 ML NEBU NEB PRN (19:00)
--- NOTE | 2018-11-13 19:25 | NUR ---
Received patient awake in bed, noted with air mattress in place. Patient is alert and oriented x 4 but speaks Kyrgyz only. Patient has an IV access at the right hand to ongoing IV fluid, infusing well. Patient on contact isolation, r/o scabies. Noted sinus rhythm on tele monitor. Bed in low position, locked, side rails up x 2, call light within reach. Noise and lights subdued. Will continue to monitor.
[2018-11-13 20:20] VITALS: BP 131/86
[2018-11-13] MEDS: TRAZODONE 50 MG TABLET PO SCH (20:39)
[2018-11-13] MEDS: ATORVASTATIN 40 MG TABLET PO SCH (20:39)
[2018-11-13] MEDS: INSULIN REGULAR, HUMAN 300 UNITS/3 ML VIAL SQ PRN (20:50)
[2018-11-13] MEDS ORDERED: INSULIN GLARGINE,HUM 300 UNITS/3 ML CARTRIDGE SQ SCH (21:00)
[2018-11-14] VITALS: BP 150/79
[2018-11-14 04:00] VITALS: BP 174/85
[2018-11-14] MEDS: MORPHINE SULFATE 4 MG/1 ML DISP.SYRIN IV PRN ×2 (05:15→10:17)
[2018-11-14] MEDS: PANTOPRAZOLE SODIUM 40 MG TABLET.DR PO SCH (06:05)
[2018-11-14] MEDS: CEphaleXIN 500 MG CAPSULE PO SCH ×2 (06:05→13:13)
--- NOTE | 2018-11-14 06:27 | NUR ---
Patient able to sleep well after taking restoril. On room air, tolerated. IV access at right hand, still patent and intact. Contact isolation observed. With complaints of pain, prn pain medication given.No shortness of breath noted.Noted had episode of sinus bradycardia for a few seconds while asleep but currently on sinus rhythm on tele monitor. Blood pressure is elevated at 165/90, noted patient has due coreg and norvasc this morning, will endorse to morning shift. Attended all needs. Ensured safety and comfort.
[2018-11-14] MEDS: BLOOD SUGAR DIAGNOSTIC 1 EACH STRIP VI SCH ×2 (06:32→11:46)
[2018-11-14] MEDS: SUCRALFATE 1 G TABLET PO SCH ×2 (06:32→12:27)
[2018-11-14] MEDS: GABAPENTIN 300 MG CAPSULE PO SCH ×2 (08:20→12:27)
[2018-11-14] MEDS: ASPIRIN 81 MG TAB.CHEW PO SCH (08:20)
[2018-11-14] MEDS: predniSONE 20 MG TABLET PO SCH (08:20)
[2018-11-14] MEDS: CITALOPRAM 10 MG TABLET PO SCH (08:20)
[2018-11-14] MEDS: CETIRIZINE HCL 10 MG TABLET PO SCH (08:21)
[2018-11-14] MEDS: INSULIN REGULAR, HUMAN 300 UNIT/3 ML VIAL SQ PRN ×2 (08:30→13:15)
[2018-11-14] MEDS: AMLODIPINE 10 MG TABLET PO SCH (08:32)
[2018-11-14] MEDS: CARVEDILOL 12.5 MG TABLET PO SCH (08:32)
[2018-11-14] MEDS: POLYVINYL ALCOHOL OPHT DROPS 15 ML BOTTLE EACHEYE PRN (08:45)
[2018-11-14] MEDS ORDERED: INSULIN GLARGINE,HUM 300 UNITS/3 ML CARTRIDGE SQ SCH (09:00)
--- NOTE | 2018-11-14 09:04 | NUR ---
Received pt in bed. A/OX4. No acute distress noted tolerating RA. Denies CP or SOB. All due medications given as ordered and tolerated well. RH PIV 20G patent and intact. NSR on tele. On air mattress for pressure redistribution. No s/sx of hypo/hyperglycemia. Noted with elevated BP, given AM coreg and amlodipine will monitor for need of hydralazine. All pt needs attended and met. Kept pt. clean and dry. Safety measures maintained. Call light and all frequently used items in place. Will continue to monitor accordingly.
[2018-11-14 09:09] LABS: BASOPHILS % (AUTO) 0.2 % (0.0-2.0); EOSINOPHILS % (AUTO) 0.2 % (0.0-7.0); HEMATOCRIT 36.5 % (36.7-47.1); LYMPHOCYTES # (AUTO) 2.4 K/uL (20.0-40.0); MEAN CORPUSCULAR HEMOGLOBIN 26.8 uug (23.8-33.4); MEAN CORPUSCULAR HGB CONC 33 g/dL (32.5-36.3); MEAN CORPUSCULAR VOLUME 81.7 fL (73.0-96.2); MONOCYTES % (AUTO) 7.8 % (0.0-11.0); NEUTROPHILS # (AUTO) 9.2 K/uL (1.8-8.9); NEUTROPHILS % (AUTO) 72.8 % (38.5-71.5); PLATELET COUNT (AUTO) 228 K/uL (152-348); RED BLOOD CELL COUNT(AUTO) 4.47 MIL/uL (4.06-5.63); WHITE BLOOD COUNT (AUTO) 12.6 K/uL (3.6-10.2)
[2018-11-14 09:12] LABS: CREATININE 0.8 mg/dL (0.6-1.3); MAGNESIUM 2.2 mg/dL (1.8-2.4); PHOSPHOROUS 3.4 mg/dL (2.5-4.9); POTASSIUM 3.7 mmol/L (3.5-5.1)
[2018-11-14] MEDS: hydrALAZINE HCL 20 MG/1 ML VIAL IV PRN (10:16)
[2018-11-14] MEDS ORDERED: CEPH500C2 PO (11:33)
[2018-11-14] MEDS ORDERED: PRED20TA PO (11:33)
[2018-11-14 11:40] VITALS: BP 144/76
[2018-11-14] MEDS ORDERED: FLUOCINONIDE 0.05% CREAM 30 GM TUBE TP PRN (13:00)
--- NOTE | 2018-11-14 17:22 | NUR ---
Discharge note: Received d/c order from Dr. Maya to d/c pt. to SNF ([facility] Routine round with pt. remained cooperative, A/OX4 with capacity to make decision. Lungs sounds clear to auscultation bilaterally, no respiratory distress. Heart with regular rate and rhythm, abnormal heart sound. NSR on Tele. Abdomen soft, non-tender, bowel sounds present in all 4 quadrants. Skin care rendered. Pictures taken and placed in chart. All belongings are prepared. Lidex cream placed given to pt. per Dr. Maya. Inventory done all belongings accountable for. Instructed resident to follow up with PCP upon discharge. D/C PIV on RH, pt. tolerated procedure well. D/C tele per graphic technician. Pt. teaching provided which include but not limited to meds administration, risk of fall, and skin mgt. No further questions from the pt. about the discharge instructions at this time and verbalized clear understanding. Discharge papers signed by pt. Placed call to SNF to give nursing report, able to touchbase to Eric (medical front desk specialist) but unable to touchbase with any license nurse. Called 4x and was unsuccessful reaching licensed nurse at the time, left Eric phone to unit for nursing staff to call [id number] for report. [id number] [facility], provided report to receiving staff with no further questions. Pt. left via [facility] at 1609 d/c to SNF. made aware of pt.
== END 2018-11-14 16:00 | DRG 202 ==
LOC: ER 20:52 → MED 11-12 00:53 → TELE 11-12 02:00 → MEDSURG3 11-14 11:07 → TELE3 11-14 11:36
PROVIDERS: ADMIT Nurse Practitioner Acute Care; ATTEND Nurse Practitioner Acute Care
DX: J45.901 Unspecified asthma with (acute) exacerbation (principal); J96.01 Acute respiratory failure with hypoxia; I69.354 Hemiplegia and hemiparesis following cerebral infarction affecting left non-dominant side; E11.65 Type 2 diabetes mellitus with hyperglycemia; Z79.4 Long term (current) use of insulin; E11.51 Type 2 diabetes mellitus with diabetic peripheral angiopathy without gangrene; Z86.718 Personal history of other venous thrombosis and embolism; Z79.82 Long term (current) use of aspirin; Z79.02 Long term (current) use of antithrombotics/antiplatelets; E78.5 Hyperlipidemia, unspecified; E11.42 Type 2 diabetes mellitus with diabetic polyneuropathy; F32.9 Major depressive disorder, single episode, unspecified; E66.9 Obesity, unspecified; Z68.38 Body mass index [BMI] 38.0-38.9, adult; Z71.3 Dietary counseling and surveillance; D17.1 Benign lipomatous neoplasm of skin and subcutaneous tissue of trunk; D72.829 Elevated white blood cell count, unspecified; T38.0X5A Adverse effect of glucocorticoids and synthetic analogues, initial encounter; Y92.129 Unspecified place in nursing home as the place of occurrence of the external cause; Z91.19 Patient's noncompliance with other medical treatment and regimen; L08.9 Local infection of the skin and subcutaneous tissue, unspecified; I70.0 Atherosclerosis of aorta; Z79.899 Other long term (current) drug therapy; D63.8 Anemia in other chronic diseases classified elsewhere; Z87.19 Personal history of other diseases of the digestive system; R74.8 Abnormal levels of other serum enzymes
CPT/HCPCS: 36415; 71045; 83735; 84100; 85025; 93005; 94640; 94664; A4663; C9113; G0378; J0360; J1815; J2270; J2920; J2930; J3475; J3590; J7030; J7060; J7512

== ENCOUNTER 2018-11-28 21:17 | Emergency (ER) | payer OTHER ==
[~2018-11-28] VITALS: Ht 180.3 cm; Wt 95.3 kg
[~2018-11-28 21:17] MED LIST changes: +ACET325C5 PO; -ASCO500C18 PO; +CEPH500C2 PO; -CHOL200013 PO; -CLOB15CR10 TOP; -CLON1PAT TD; -CLOP75TA15 PO; -DIPH50CA37 PO; -DOCU-141 PO; +EMOL1CRE TP; -FERR325T22 PO; -FURO-152 PO; +HALO15OI4 TP; +HYDR-4384 PO; -INSU100I4 SQ; +INSU100V7 SQ; -LISI40TA4 PO; -MAGN400O6 PO; -METO-295 PO; -MORP15TA PO; -ONDA4TAB5 PO; +PRED20TA PO
--- NOTE | 2018-11-28 22:00 | NUR ---
Dr. Ellis at bedside for MSE.
[2018-11-28] MEDS ORDERED: LET TOPICAL SOLUTION 8 ML UDC ONE (22:06)
--- NOTE | 2018-11-28 22:10 | NUR ---
Respiratory at bedside.
[2018-11-28] MEDS ORDERED: ALBUTEROL SULFATE 2.5 MG/3 ML NEBU ONE ×2 (22:12→22:47)
[2018-11-28] MEDS ORDERED: ALBUTEROL SULFATE 2.5 MG/3 ML NEBU NEB ONE ×2 (22:15→22:45)
[2018-11-28] MEDS ORDERED: LET TOPICAL SOLUTION 8 ML UDC TP ONE (22:15)
[2018-11-28] MEDS ORDERED: MUPIROCIN 2% OINT 22 GM TUBE TP ONE (22:45)
[2018-11-28] MEDS ORDERED: IPRATROPIUM BROMIDE 0.5 MG/2.5 ML NEBU NEB ONE (22:45)
[2018-11-28] MEDS ORDERED: IPRATROPIUM BROMIDE 0.5 MG/2.5 ML NEBU ONE (22:47)
[2018-11-28] MEDS ORDERED: SULFAMETH/TRIMETH 800/160 MG TABLET PO ONE (23:00)
[2018-11-28] MEDS ORDERED: SULFAMETH/TRIMETH 800/160 MG TABLET ONE (23:05)
[2018-11-28] MEDS ORDERED: MUPIROCIN 2% OINT 22 GM TUBE ONE (23:06)
--- NOTE | 2018-11-28 23:12 | NUR ---
Called Belle, JOCELYNE 0015, Trip#[id number]
--- NOTE | 2018-11-29 00:25 | NUR ---
Patient discharged to home in stable conditon. Written and verbal after care instructions given to [facility] and patient. Patient verbalizes understanding of instructions. Pt out of ER via [facility], VSS, no acute signs of distress, all belongings taken.
[2018-11-29 00:35] VITALS: BP 106/59
== END 2018-11-29 00:35 | disposition home or self-care (01) ==
LOC: ER 21:17
DX: L01.02 Bockhart's impetigo (principal); J45.909 Unspecified asthma, uncomplicated; E78.5 Hyperlipidemia, unspecified; E11.9 Type 2 diabetes mellitus without complications; I10 Essential (primary) hypertension; Z86.2 Personal history of diseases of the blood and blood-forming organs and certain disorders involving the immune mechanism; Z86.73 Personal history of transient ischemic attack (TIA), and cerebral infarction without residual deficits; Z79.4 Long term (current) use of insulin; Z79.82 Long term (current) use of aspirin; Z79.899 Other long term (current) drug therapy
CPT/HCPCS: A4663; J3590

== ENCOUNTER 2019-01-16 17:37 | Emergency (ER) | payer OTHER ==
[~2019-01-16] VITALS: Ht 177.8 cm; Wt 91.6 kg
--- NOTE | 2019-01-16 17:55 | NUR ---
Patient received from ambulance, awake and alert. VS HR 88, bp 130/88, temp 97.2. Patient right thumb red and swollen. Patient co having full body itching. Asim Ross RN
[2019-01-16 18:02] LABS: BASOPHILS # (AUTO) 0.1 K/uL (0.0-8.0); BASOPHILS % (AUTO) 0.5 % (0.0-2.0); EOSINOPHILS # (AUTO) 0.5 K/uL (0.0-0.7); EOSINOPHILS % (AUTO) 5.1 % (0.0-7.0); HEMATOCRIT 34.9 % (36.7-47.1); HEMOGLOBIN 11.7 g/dL (12.5-16.3); LYMPHOCYTES # (AUTO) 1.7 K/uL (20.0-40.0); LYMPHOCYTES % (AUTO) 16.8 % (20.5-51.5); MEAN CORPUSCULAR HEMOGLOBIN 27.3 uug (23.8-33.4); MEAN CORPUSCULAR HGB CONC 34 g/dL (32.5-36.3); MEAN CORPUSCULAR VOLUME 81.2 fL (73.0-96.2); MONOCYTES # (AUTO) 0.8 K/uL (2.0-10.0); MONOCYTES % (AUTO) 7.6 % (0.0-11.0); NEUTROPHILS # (AUTO) 7.1 K/uL (1.8-8.9); PLATELET COUNT (AUTO) 291 K/uL (152-348); WHITE BLOOD COUNT (AUTO) 10.2 K/uL (3.6-10.2)
[2019-01-16 18:07] LABS: CREATININE 0.9 mg/dL (0.6-1.3); POTASSIUM 4.2 mmol/L (3.5-5.1)
[2019-01-16] MEDS ORDERED: CLINDAMYCIN PHOSPHATE 600 MG/4 ML VIAL IM ONE (18:15)
--- NOTE | 2019-01-16 18:15 | NUR ---
EKG done, and Dr Tabor visiting with patient for medical interview.
[2019-01-16] MEDS ORDERED: CLINDAMYCIN PHOSPHATE 600 MG/4 ML VIAL ONE (18:25)
--- NOTE | 2019-01-16 18:25 | NUR ---
Patient with I&D right thumb done at bedside, and redress by Vincenzo OMALLEY assist with redrsg right thumb.
--- NOTE | 2019-01-16 18:37 | NUR ---
CALLED [facility] TO TRANSFER THE PT BACK, ETA [phone], TRIP # [id number]
[2019-01-16] MEDS ORDERED: ALBUTEROL SULFATE 2.5 MG/3 ML NEBU NEB ONE (19:15)
[2019-01-16] MEDS ORDERED: IPRATROPIUM BROMIDE 0.5 MG/2.5 ML NEBU NEB ONE (19:15)
--- NOTE | 2019-01-16 19:17 | NUR ---
RT at bedside for breathing tx
[2019-01-16] MEDS ORDERED: ALBUTEROL SULFATE 2.5 MG/3 ML NEBU ONE (19:19)
[2019-01-16] MEDS ORDERED: IPRATROPIUM BROMIDE 0.5 MG/2.5 ML NEBU ONE (19:19)
--- NOTE | 2019-01-16 20:49 | NUR ---
Transport came to picker and packer patient, patient in stable condition. Report given to Justyna at [facility] and rehab.
[2019-01-16 20:53] VITALS: BP 140/82
== END 2019-01-16 20:54 | disposition home or self-care (01) ==
LOC: ER 17:37
DX: B37.2 Candidiasis of skin and nail (principal); L03.011 Cellulitis of right finger; J45.909 Unspecified asthma, uncomplicated; E78.5 Hyperlipidemia, unspecified; E11.9 Type 2 diabetes mellitus without complications; I10 Essential (primary) hypertension; Z79.82 Long term (current) use of aspirin; Z79.4 Long term (current) use of insulin; Z79.899 Other long term (current) drug therapy
CPT/HCPCS: 10060; 36415; 71045; 80048; 83605; 85025; 87040 ×2; 93005; 94640; 96372; 99284; J3490 ×2; J7060; A4663; J3590

== ENCOUNTER 2021-05-25 09:02 | Emergency (ER) | payer OTHER ==
[~2021-05-25] VITALS: Ht 177.8 cm; Wt 91.6 kg
[~2021-05-25 09:02] MED LIST changes: -ACET325C5 PO; +ACET325C7 PO; -ALBU6.7H IH; +ALBU6.7H9 IH; +AMLO10TA59 PO; -AMLO10TA7 PO; -CETI-102 PO; +CETI-90 PO; -HYDR-4076 PO; +HYDR-894 PO
--- NOTE | 2021-05-25 09:37 | NUR ---
Dr Ellis at the bedside for MSE.
[2021-05-25] MEDS ORDERED: PANTOPRAZOLE SODIUM 40 MG VIAL IV ONE (09:45)
[2021-05-25] MEDS ORDERED: IV NORMAL SALINE 1000 ML BAG IV ONE (09:45)
[2021-05-25] MEDS ORDERED: ONDANSETRON 4 MG/2 ML VIAL IV ONE (09:45)
[2021-05-25 09:52] LABS: HEMATOCRIT 31.1 % (36.7-47.1); MEAN CORPUSCULAR HEMOGLOBIN 28.1 uug (23.8-33.4); MEAN CORPUSCULAR VOLUME 83.5 fL (73.0-96.2); PLATELET COUNT (AUTO) 360 K/uL (152-348)
[2021-05-25 09:58] LABS: CREATININE 1.2 mg/dL (0.6-1.3); POTASSIUM 4.6 mmol/L (3.5-5.1)
[2021-05-25] MEDS ORDERED: PANTOPRAZOLE SODIUM 40 MG VIAL ONE (09:59)
[2021-05-25] MEDS ORDERED: ONDANSETRON 4 MG/2 ML VIAL ONE (09:59)
[2021-05-25 10:04] LABS: BILIRUBIN,DIRECT 0.1 mg/dL (0.0-0.2); BILIRUBIN,TOTAL 0.2 mg/dL (0.2-1.0); TOTAL PROTEIN, SERUM 8.3 g/dL (6.4-8.2)
[2021-05-25] MEDS ORDERED: BISA10SU61 RC (10:07)
[2021-05-25] MEDS ORDERED: SENN-261 PO (10:07)
[2021-05-25] MEDS ORDERED: CARV25TA PO (10:07)
[2021-05-25] MEDS ORDERED: DEXT15DR6 EACHEYE (10:07)
[2021-05-25] MEDS ORDERED: APIX5TAB PO (10:07)
[2021-05-25] MEDS ORDERED: OMEG-153 PO (10:07)
[2021-05-25] MEDS ORDERED: CLON0.3P TD (10:07)
[2021-05-25] MEDS ORDERED: SIME80TA15 PO (10:07)
[2021-05-25] MEDS ORDERED: FERR325T28 PO (10:07)
[2021-05-25] MEDS ORDERED: ALBU18HF2 INH (10:07)
[2021-05-25] MEDS ORDERED: POLY119P2 PO (10:07)
[2021-05-25] MEDS ORDERED: ZALE5CAP2 PO (10:07)
[2021-05-25] MEDS ORDERED: MELA5TAB PO (10:07)
[2021-05-25] MEDS ORDERED: LISI20TA30 PO (10:07)
[2021-05-25] MEDS ORDERED: DOCU250C14 PO (10:07)
--- NOTE | 2021-05-25 10:22 | NUR ---
Pt back from CT scan, C/O back pain, reposition for comfort.
[2021-05-25] MEDS ORDERED: MORPHINE SULFATE 2 MG/1 ML DISP.SYRIN ONE (10:35)
[2021-05-25] MEDS ORDERED: MORPHINE SULFATE 2 MG/1 ML DISP.SYRIN IV ONE (10:45)
--- NOTE | 2021-05-25 11:10 | NUR ---
Patient is resting comfortably in bed with eyes closed, NAD noted.
[2021-05-25 14:26] LABS: HEMATOCRIT 32.2 % (36.7-47.1)
[2021-05-25] MEDS ORDERED: HYDROCODONE/APAP 10-325 MG TABLET PO ONE (14:30)
[2021-05-25] MEDS ORDERED: HYDROCODONE/APAP 10-325 MG TABLET ONE (14:40)
[2021-05-25] MEDS ORDERED: hydrALAZINE HCL 20 MG/1 ML VIAL IV ONE (14:45)
[2021-05-25 14:48] LABS: *OCCULT BLOOD STOOL NEGATIVE (NEGATIVE)
[2021-05-25] MEDS ORDERED: hydrALAZINE HCL 20 MG/1 ML VIAL ONE (14:52)
--- NOTE | 2021-05-25 14:55 | NUR ---
Called for transfer 1st available time 2129.
--- NOTE | 2021-05-25 15:10 | NUR ---
Able to get an earlier transfer for pt, ETA 1615.
[2021-05-25] MEDS ORDERED: hydrALAZINE HCL 25 MG TABLET ONE (16:11)
--- NOTE | 2021-05-25 16:35 | NUR ---
IV removed. Catheter intact and site benign. Pressure and 4x4 gauze applied to site. No bleeding noted.
--- NOTE | 2021-05-25 16:40 | NUR ---
Report given to knowledge engineer, Pt left Er in stable condition. All belongings taken w/ PT.
[2021-05-25 16:48] VITALS: BP 171/78
--- NOTE | 2021-05-25 16:48 | NUR ---
Note junieone in ED - 05/25/21 at 1648 by XIOMARA IV removed. Catheter intact and site benign. Pressure and 4x4 gauze applied to site. No bleeding noted.
== END 2021-05-25 16:45 ==
LOC: ER 09:02
DX: R11.10 Vomiting, unspecified (principal); I10 Essential (primary) hypertension; E78.5 Hyperlipidemia, unspecified; Z20.822 Contact with and (suspected) exposure to COVID-19; I69.354 Hemiplegia and hemiparesis following cerebral infarction affecting left non-dominant side; E11.9 Type 2 diabetes mellitus without complications; J45.909 Unspecified asthma, uncomplicated; G89.29 Other chronic pain; Z79.01 Long term (current) use of anticoagulants; Z79.4 Long term (current) use of insulin; Z79.82 Long term (current) use of aspirin; Z79.899 Other long term (current) drug therapy; Z82.49 Family history of ischemic heart disease and other diseases of the circulatory system
CPT/HCPCS: 71045; 74176; 80048; 80076; 82270; 85018; 85025; 85730; 86850; 86900; 86901; 87426; 93005; 96361; 96374; 96375; 99291; C9113; J0360; J2270; J2405; 36415; A4663; J7030

== ENCOUNTER 2025-07-20 17:14 | Inpatient (IN) | payer MEDICAID, OTHER ==
[~2025-07-20] VITALS: Ht 177.8 cm; Wt 70.4 kg
[~2025-07-20 17:14] MED LIST changes: +ALBU18HF2 INH; -ALBU6.7H9 IH; +APIX5TAB PO; +BISA10SU61 RC; -CARV12.52 PO; +CARV25TA PO; -CEPH500C2 PO; -CETI-90 PO; -CITA10TA17 PO; +CLON0.3P TD; +DEXT15DR6 EACHEYE; +DOCU250C14 PO; -EMOL1CRE TP; +FERR325T28 PO; -HALO15OI4 TP; +HYDR-5156 PO; -HYDR-894 PO; -INSU100C SQ; +LISI20TA30 PO; +MELA5TAB PO; +OMEG-153 PO; +POLY119P2 PO; -PRED20TA PO; +SENN-351 PO; +SIME80TA15 PO; -SUCR1TAB31 PO; -TRAZ-182 PO; +ZALE5CAP2 PO
[2025-07-20] MEDS ORDERED: LOSA50TA39 PO (17:42)
[2025-07-20] MEDS ORDERED: MULT-213 PO (17:42)
[2025-07-20] MEDS ORDERED: MELA3CAP2 PO (17:42)
[2025-07-20] MEDS ORDERED: IPRA3AMP22 IH (17:42)
[2025-07-20] MEDS ORDERED: HYDR-3980 PO (17:42)
[2025-07-20] MEDS ORDERED: NITR0.4T48 SL (17:42)
[2025-07-20] MEDS ORDERED: FURO20TA4 PO (17:42)
[2025-07-20] MEDS ORDERED: ASCO500C18 PO (17:42)
[2025-07-20] MEDS ORDERED: FLUT1BLS15 IH (17:42)
[2025-07-20] MEDS ORDERED: INSU100V28 SQ (17:42)
[2025-07-20] MEDS ORDERED: ROSU20TA2 PO (17:42)
[2025-07-20] MEDS ORDERED: HYDR453. TP (17:42)
[2025-07-20] MEDS ORDERED: NA P133E RC (17:42)
[2025-07-20] MEDS ORDERED: LIDOCAINE PATCH 4% TOP (17:42)
[2025-07-20] MEDS ORDERED: LANS30CA56 PO (17:42)
[2025-07-20] MEDS ORDERED: AMLO-212 PO (17:42)
[2025-07-20] MEDS ORDERED: MIDO5TAB5 PO (17:42)
[2025-07-20] MEDS ORDERED: METH-806 PO (17:42)
[2025-07-20] MEDS ORDERED: FINA5TAB11 PO (17:42)
[2025-07-20] MEDS ORDERED: DOCU100C36 PO (17:42)
[2025-07-20] MEDS ORDERED: MAGN400O6 PO (17:42)
[2025-07-20] MEDS ORDERED: DIPH25TA62 PO (17:42)
[2025-07-20] MEDS: IV NORMAL SALINE 1000 ML BAG IV ONE (18:46)
[2025-07-20 19:09] LABS: PLATELET COUNT (AUTO) 479 K/uL (152-348); RED CELL DISTRIBUTION WIDTH 16.3 % (12.1-16.2); WHITE BLOOD COUNT (AUTO) 13.2 K/uL (3.6-10.2)
[2025-07-20 19:15] LABS: ASPARTATE AMINOTRANSFERASE 33 U/L (15-37); CREATININE 3.7 mg/dL (0.6-1.3); SODIUM SERUM 137 mmol/L (136-145); TOTAL PROTEIN, SERUM 7.3 g/dL (6.4-8.2)
[2025-07-20 19:21] LABS: RED BLOOD CELL COUNT(AUTO) 1.86 MIL/uL (4.06-5.63); UREA NITROGEN, BLOOD 121 mg/dL (7-18)
[2025-07-20] MEDS ORDERED: SODIUM BICARBONATE 8.4% 50 MEQ/50 ML VIAL IV STA (19:24)
[2025-07-20] MEDS ORDERED: SODIUM BICARBONATE 8.4% 50 MEQ/50 ML DISP.SYRIN IV ONE ×3 (19:30→19:42)
[2025-07-20] MEDS: SODIUM BICARBONATE 8.4% 50 MEQ/50 ML VIAL IV ONE (19:41)
[2025-07-20] MEDS ORDERED: MISCELLANEOUS MED IV ONE (19:45)
[2025-07-20] MEDS ORDERED: LIDOCAINE 2%-EPI 1:100,000 20 ML VIAL ONE ×2 (20:04→20:22)
[2025-07-20 20:10] LABS: LYMPHOCYTES % (MANUAL) 9 % (20-40); MONOCYTES % (MANUAL) 3 % (2-10); NEUTROPHILS % (MANUAL) 88 % (42-75); PLATELET ESTIMATE INCREASED
[2025-07-20] MEDS: LIDOCAINE 2%-EPI 1:100,000 20 ML VIAL IJ ONE (20:27)
[2025-07-20] MEDS ORDERED: REMEDY ESSENTIAL ZINC PASTE 113 GM TP PRN (21:45)
[2025-07-20] MEDS ORDERED: IV NS 1000 ML 1,000 ML IV PRN (21:45)
[2025-07-20] MEDS ORDERED: BISACODYL 10 MG SUPP.RECT RC PRN (22:00)
[2025-07-20] MEDS ORDERED: ALBUTEROL SULFATE 2.5 MG/3 ML NEBU ONE (22:02)
[2025-07-20 22:08] VITALS: O2SAT 96
[2025-07-20] MEDS: ALBUTEROL SULFATE 2.5 MG/3 ML NEBU NEB ONE (22:08)
[2025-07-20] MEDS ORDERED: INSULIN REGULAR, HUMAN 300 UNITS/3 ML VIAL SQ PRN (22:15)
[2025-07-20] MEDS ORDERED: DEXTROSE 50% 50 ML DISP.SYRIN IV PRN (22:15)
[2025-07-20 22:53] VITALS: O2SAT 99
[2025-07-20] MEDS ORDERED: PANTOPRAZOLE SODIUM 40 MG VIAL ONE (23:32)
[2025-07-20] MEDS: SODIUM ZIRCONIUM CYCLOSILICATE 10 GM POWD.PACK PO ONE (23:35)
[2025-07-20] MEDS: PANTOPRAZOLE SODIUM IV 40 MG in IV DEXTROSE 5% 100 ML IV SCH (23:35)
[2025-07-21] VITALS (10 sets, daily range): O2SAT 95–99
[2025-07-21] MEDS ORDERED: GABAPENTIN 300 MG CAPSULE ONE ×3 (00:26→17:03)
[2025-07-21] MEDS: GABAPENTIN 300 MG CAPSULE PO SCH ×2 (00:27→11:21)
[2025-07-21] MEDS ORDERED: PANTOPRAZOLE SODIUM 40 MG VIAL ONE (03:00)
[2025-07-21] MEDS ORDERED: ACETAMINOPHEN 325 MG TABLET ONE ×2 (04:34→12:20)
[2025-07-21] MEDS: ACETAMINOPHEN 325 MG TABLET PO PRN (04:35)
[2025-07-21] MEDS ORDERED: BISACODYL 10 MG SUPP.RECT RC PRN (05:35)
[2025-07-21] MEDS: BLOOD SUGAR DIAGNOSTIC 1 EACH STRIP VI SCH ×2 (08:05→18:20)
[2025-07-21] MEDS ORDERED: INSULIN REGULAR, HUMAN 1000 UNIT/10 ML VIAL ONE (08:13)
[2025-07-21] MEDS: INSULIN REGULAR, HUMAN 1000 UNIT/10 ML VIAL SQ PRN (08:20)
[2025-07-21] MEDS: SODIUM BICARBONATE 8.4% 150 MEQ in IV D5W 1000ML 1,000 ML IV PRN (08:38)
[2025-07-21] MEDS ORDERED: FLUTICASONE/SALMETEROL 250/50 INHALER IH SCH (09:00)
[2025-07-21] MEDS ORDERED: ASCORBIC ACID 500 MG TABLET PO SCH ×2 (09:00)
[2025-07-21] MEDS ORDERED: AMLODIPINE 5 MG TABLET PO SCH (09:00)
[2025-07-21] MEDS: FINASTERIDE 5 MG TABLET PO SCH (09:30)
[2025-07-21] MEDS ORDERED: METHOCARBAMOL 500 MG TABLET ONE ×3 (09:30→17:03)
[2025-07-21] MEDS: METHOCARBAMOL 500 MG TABLET PO SCH (09:30)
[2025-07-21] MEDS ORDERED: FINASTERIDE 5 MG TABLET ONE ×2 (09:30→09:40)
[2025-07-21 09:31] LABS: PLATELET COUNT (AUTO) 378 K/uL (152-348); RED BLOOD CELL COUNT(AUTO) 2.58 MIL/uL (4.06-5.63); RED CELL DISTRIBUTION WIDTH 18.4 % (12.1-16.2); WHITE BLOOD COUNT (AUTO) 13.9 K/uL (3.6-10.2)
[2025-07-21 09:39] LABS: CREATININE 3.6 mg/dL (0.6-1.3); SODIUM SERUM 138 mmol/L (136-145)
[2025-07-21 09:48] LABS: UREA NITROGEN, BLOOD 122 mg/dL (7-18)
[2025-07-21 10:08] LABS: IRON, SERUM 77 ug/dL (50-175)
[2025-07-21 10:17] LABS: CREATININE 3.6 mg/dL (0.6-1.3); SODIUM SERUM 137 mmol/L (136-145)
[2025-07-21 10:28] LABS: UREA NITROGEN, BLOOD 121 mg/dL (7-18)
[2025-07-21] MEDS ORDERED: ALBUTEROL SULFATE 2.5 MG/3 ML NEBU ONE ×4 (10:37→22:19)
[2025-07-21] MEDS ORDERED: IPRATROPIUM BROMIDE 0.5 MG/2.5 ML NEBU ONE ×4 (10:37→22:19)
[2025-07-21] MEDS: ALBUTEROL SULFATE 2.5 MG/3 ML NEBU NEB SCH (10:53)
[2025-07-21] MEDS: IPRATROPIUM BROMIDE 0.5 MG/2.5 ML NEBU NEB SCH (10:53)
[2025-07-21 10:58] LABS: ABG BASE EXCESS -12.3 mmol/L (-2.0-3.0); ABG HCO3 14.0 mmol/L (21.0-28.0); ABG PCO2 33.4 mmHg (35.0-48.0); ABG PH 7.241 (7.350-7.450); ABG PO2 110.9 mmHg (83.0-108.0); ABG SITE LEFT RADIAL; ABG TOTAL HEMOGLOBIN 6.8 G/dL (13.5-17.5); AaDO2 97.4 mmHg; FIO2 32.0 %; FLOW, BLOOD GAS 3.00 L/min (0.00-30.00)
[2025-07-21] MEDS: FLUTICASONE/VILANTEROL 1 EACH BLST.W.DEV INH SCH (11:13)
[2025-07-21 11:49] LABS: *CREATININE,URINE 105.7 mg/dL (30-125); *SODIUM RNDM,URINE 35.0 mmol/L (40-220); *URINE TOTAL PROTEIN RANDOM 100.6 mg/dL (<150/24HR)
[2025-07-21 12:09] LABS: *BILIRUBIN,URIN NEGATIVE (NEGATIVE); *BLOOD, URINE 1+ (NEGATIVE); *CLARITY,URINE TURBID (CLEAR); *COLOR,URINE YELLOW (YELLOW); *KETONES,URINE TRACE (NEGATIVE); *PROTEIN,URINE 2+ (NEGATIVE); *UROBILINOGEN,URINE 0.2 E.U./dl (NORMAL); LEUKOCYTE ESTERASE ,URINE TRACE (NEGATIVE); NITRITE, URINE NEGATIVE (NEGATIVE); UGLUCOSE NEGATIVE (NEGATIVE)
[2025-07-21 12:27] LABS: SQUAMOUS EPITHELIAL CELL,UR FEW /HPF (NONE SEEN); URINE AMORPHOUS URATE MODERATE /HPF; YEAST,URINE BUDDING YEAST /HPF (NONE SEEN)
[2025-07-21 13:31] LABS: BAND % (MANUAL) 4 % (0-10); EOSINOPHILS % (MANUAL) 1 % (0-8); LYMPHOCYTES % (MANUAL) 9 % (20-40); MONOCYTES % (MANUAL) 11 % (2-10); NEUTROPHILS % (MANUAL) 75 % (42-75)
[2025-07-21 13:32] LABS: PLATELET ESTIMATE ADEQUATE
[2025-07-21] MEDS ORDERED: MORPHINE SULFATE 2 MG/1 ML DISP.SYRIN IV PRN (14:45)
[2025-07-21] MEDS ORDERED: SODIUM ZIRCONIUM CYCLOSILICATE 10 GM POWD.PACK ONE (17:02)
[2025-07-21] MEDS: SODIUM CITRATE/CITRIC ACID (500/334MG/5ML) UDC 30 ML SOLUTION PO SCH (17:03)
[2025-07-21] MEDS: SODIUM ZIRCONIUM CYCLOSILICATE 10 GM POWD.PACK PO ONE (17:03)
[2025-07-21] MEDS: SEVELAMER CARBONATE 800 MG TABLET PO SCH (18:00)
[2025-07-21] MEDS: INSULIN REGULAR, HUMAN 1000 UNIT/10 ML VIAL SQ SCH (18:27)
[2025-07-21 19:12] LABS: PLATELET COUNT (AUTO) 353 K/uL (152-348); RED BLOOD CELL COUNT(AUTO) 3.01 MIL/uL (4.06-5.63); RED CELL DISTRIBUTION WIDTH 18.9 % (12.1-16.2); WHITE BLOOD COUNT (AUTO) 12.8 K/uL (3.6-10.2)
[2025-07-21 19:38] LABS: ASPARTATE AMINOTRANSFERASE 27 U/L (15-37); CREATININE 3.5 mg/dL (0.6-1.3); SODIUM SERUM 132 mmol/L (136-145); TOTAL PROTEIN, SERUM 7.0 g/dL (6.4-8.2)
[2025-07-21 19:41] LABS: UREA NITROGEN, BLOOD 113 mg/dL (7-18)
[2025-07-21] MEDS: SENNOSIDES 1 TABLET PO SCH (21:25)
[2025-07-21] MEDS ORDERED: MORPHINE SULFATE 2 MG/1 ML DISP.SYRIN ONE (22:30)
[2025-07-21] MEDS: MORPHINE SULFATE 4 MG/1 ML DISP.SYRIN IV PRN (22:38)
[2025-07-21] MEDS: ALBUTEROL SULFATE 2.5 MG/3 ML NEBU NEB PRN (23:29)
[2025-07-22] MEDS ORDERED: MORPHINE SULFATE 2 MG/1 ML DISP.SYRIN ONE ×2 (00:18→02:32)
[2025-07-22] MEDS: MORPHINE SULFATE 2 MG/1 ML DISP.SYRIN IV PRN (00:20)
[2025-07-22] MEDS ORDERED: LORAZEPAM 2 MG/1 ML VIAL ONE ×2 (02:58→11:43)
[2025-07-22] MEDS ORDERED: AMIODARONE HCL 150 MG/3 ML VIAL IV ONE (03:24)
[2025-07-22] MEDS: AMIODARONE HCL IV 150 MG in IV DEXTROSE 5% 100 ML IV ONE (03:59)
[2025-07-22] MEDS: AMIODARONE HCL IV 450 MG in IV DEXTROSE 5% 250 ML IV PRN (04:09)
[2025-07-22 05:32] LABS: PLATELET COUNT (AUTO) 373 K/uL (152-348); RED BLOOD CELL COUNT(AUTO) 3.01 MIL/uL (4.06-5.63); RED CELL DISTRIBUTION WIDTH 19.1 % (12.1-16.2); WHITE BLOOD COUNT (AUTO) 16.1 K/uL (3.6-10.2)
[2025-07-22 05:46] LABS: ASPARTATE AMINOTRANSFERASE 19 U/L (15-37); CREATINE KINASE, TOTAL 716 U/L (39-308); CREATININE 3.1 mg/dL (0.6-1.3); SODIUM SERUM 139 mmol/L (136-145); TOTAL PROTEIN, SERUM 6.9 g/dL (6.4-8.2)
[2025-07-22 05:47] LABS: UREA NITROGEN, BLOOD 109 mg/dL (7-18)
[2025-07-22 06:21] LABS: EOSINOPHILS % (MANUAL) 2 % (0-8); LYMPHOCYTES % (MANUAL) 7 % (20-40); MONOCYTES % (MANUAL) 8 % (2-10); NEUTROPHILS % (MANUAL) 83 % (42-75); PLATELET ESTIMATE ADEQUATE
[2025-07-22] MEDS: LORAZEPAM 2 MG/1 ML VIAL IV PRN (11:52)
[2025-07-22] MEDS: LEVALBUTEROL HCL NEB 0.63 MG/3 ML NEBU NEB SCH (13:25)
[2025-07-22] MEDS: IPRATROPIUM BROMIDE 0.5 MG/2.5 ML NEBU NEB SCH (13:25)
[2025-07-22 15:52] LABS: *OCCULT BLOOD STOOL POSITIVE (NEGATIVE)
[2025-07-22] MEDS ORDERED: LEVALBUTEROL HCL NEB 0.63 MG/3 ML NEBU ONE (19:23)
[2025-07-22] MEDS ORDERED: IPRATROPIUM BROMIDE 0.5 MG/2.5 ML NEBU ONE (19:24)
[2025-07-22 19:40] VITALS: O2SAT 95
[2025-07-22 19:51] VITALS: O2SAT 99
[2025-07-22 19:55] VITALS: O2SAT 99
[2025-07-22] MEDS ORDERED: MVI ADULT 10 ML VIAL=1 AMP 10 ML, THIAMINE HCL INJ 100 MG, FOLIC ACID 1 MG, MAGNESIUM S... IV SCH (20:00)
[2025-07-22] MEDS: BLOOD SUGAR DIAGNOSTIC 1 EACH STRIP VI SCH (20:11)
[2025-07-22] MEDS ORDERED: PANTOPRAZOLE SODIUM 40 MG VIAL ONE (20:18)
[2025-07-22] MEDS: PANTOPRAZOLE SODIUM 40 MG VIAL IV SCH (20:19)
[2025-07-22] MEDS: IV D5/ 0.9% NACL 1,000 ML IV SCH (21:30)
[2025-07-22 22:02] VITALS: BP 150/66; TEMP 98.2; O2SAT 94
[2025-07-23] VITALS (11 sets, daily range): BP systolic 121–133; BP diastolic 54–66; TEMP 98.3–98.8; O2SAT 93–100
[2025-07-23 07:02] LABS: PLATELET COUNT (AUTO) 424 K/uL (152-348); RED BLOOD CELL COUNT(AUTO) 3.16 MIL/uL (4.06-5.63); RED CELL DISTRIBUTION WIDTH 18.9 % (12.1-16.2); WHITE BLOOD COUNT (AUTO) 19.4 K/uL (3.6-10.2)
[2025-07-23 07:13] LABS: CREATINE KINASE, TOTAL 676 U/L (39-308); CREATININE 2.7 mg/dL (0.6-1.3); SODIUM SERUM 139 mmol/L (136-145)
[2025-07-23 07:36] LABS: UREA NITROGEN, BLOOD 106 mg/dL (7-18)
[2025-07-23] MEDS: LEVALBUTEROL HCL NEB 0.63 MG/3 ML NEBU NEB SCH (08:14)
[2025-07-23] MEDS ORDERED: DEXTROSE 50% 50 ML DISP.SYRIN IV PRN (10:35)
[2025-07-23] MEDS ORDERED: PIPERACILLIN/TAZO 2.25 G in IV DEXTROSE 5% 50 ML IV SCH (12:00)
[2025-07-23] MEDS ORDERED: AMIODARONE HCL 150 MG/3 ML VIAL IV ONE (12:19)
[2025-07-23] MEDS ORDERED: AMIODARONE HCL IV ONE (12:21)
[2025-07-23] MEDS ORDERED: PROPOFOL 200 MG/20 ML BOTTLE ONE (12:42)
[2025-07-23] MEDS ORDERED: LIDOCAINE-MPF 2% 5 ML VIAL ONE (12:42)
[2025-07-23] MEDS ORDERED: ETOMIDATE 20 MG/10 ML VIAL ONE (12:42)
[2025-07-23] MEDS: AMIODARONE HCL IV 450 MG in IV DEXTROSE 5% 250 ML IV PRN (12:45)
[2025-07-23] MEDS ORDERED: LORAZEPAM 2 MG/1 ML VIAL ONE ×2 (13:41→20:37)
[2025-07-23] MEDS: PIPERACILLIN SODIUM/TAZOBACTAM 3.375 G in IV DEXTROSE 5% 100 ML IV SCH (14:06)
[2025-07-23] MEDS ORDERED: LEVALBUTEROL HCL NEB 0.63 MG/3 ML NEBU ONE ×2 (14:27→19:33)
[2025-07-23] MEDS ORDERED: IPRATROPIUM BROMIDE 0.5 MG/2.5 ML NEBU ONE ×2 (14:27→19:33)
[2025-07-23] MEDS ORDERED: MORPHINE SULFATE 2 MG/1 ML DISP.SYRIN ONE (17:20)
[2025-07-23] MEDS ORDERED: PANTOPRAZOLE SODIUM 40 MG VIAL ONE (20:06)
[2025-07-23 21:09] LABS: HIV-1/2 ANTIBODY NON REACTIVE (NONREACTIVE)
[2025-07-24] VITALS (9 sets, daily range): BP systolic 120–135; BP diastolic 52–66; TEMP 98.3–98.5; O2SAT 94–100
[2025-07-24] MEDS ORDERED: MORPHINE SULFATE 2 MG/1 ML DISP.SYRIN ONE ×2 (00:02→07:52)
[2025-07-24 02:06] LABS: PTH, INTACT 167 pg/mL (15-65)
[2025-07-24 06:07] LABS: PLATELET COUNT (AUTO) 413 K/uL (152-348); RED BLOOD CELL COUNT(AUTO) 2.86 MIL/uL (4.06-5.63); RED CELL DISTRIBUTION WIDTH 19.0 % (12.1-16.2); WHITE BLOOD COUNT (AUTO) 21.8 K/uL (3.6-10.2)
[2025-07-24 06:10] LABS: CREATININE 2.5 mg/dL (0.6-1.3); SODIUM SERUM 141 mmol/L (136-145)
[2025-07-24 06:12] LABS: UREA NITROGEN, BLOOD 99 mg/dL (7-18)
[2025-07-24] MEDS: AMIODARONE HCL 200 MG TABLET PO SCH (09:00)
[2025-07-24] MEDS: METOPROLOL TARTRATE 50 MG TABLET PO SCH (09:00)
[2025-07-24] MEDS: DOXYCYCLINE HYCLATE 100 MG TABLET PO SCH (22:23)
[2025-07-25] VITALS (14 sets, daily range): BP systolic 111–142; BP diastolic 50–71; TEMP 98.2–98.6; O2SAT 93–100
[2025-07-25 06:46] LABS: PLATELET COUNT (AUTO) 400 K/uL (152-348); RED BLOOD CELL COUNT(AUTO) 2.90 MIL/uL (4.06-5.63); RED CELL DISTRIBUTION WIDTH 18.4 % (12.1-16.2); WHITE BLOOD COUNT (AUTO) 18.5 K/uL (3.6-10.2)
[2025-07-25 06:59] LABS: CREATININE 2.7 mg/dL (0.6-1.3); SODIUM SERUM 142 mmol/L (136-145)
[2025-07-25 07:16] LABS: UREA NITROGEN, BLOOD 97 mg/dL (7-18)
[2025-07-25] MEDS: ALBUTEROL SULFATE 1.25 MG/3 ML NEBU NEB SCH (19:38)
[2025-07-25] MEDS ORDERED: DEXTROSE 50% 50 ML DISP.SYRIN IV PRN (20:30)
[2025-07-25] MEDS: INSULIN REGULAR, HUMAN 300 UNITS/3 ML VIAL SQ PRN (20:50)
[2025-07-25] MEDS: BLOOD SUGAR DIAGNOSTIC 1 EACH STRIP VI SCH (20:59)
[2025-07-25] MEDS: MORPHINE SULFATE 2 MG/1 ML DISP.SYRIN IV PRN (21:39)
[2025-07-25] MEDS: LORAZEPAM 1 MG TABLET PO PRN (23:48)
[2025-07-26] VITALS (11 sets, daily range): BP systolic 136–154; BP diastolic 50–73; TEMP 97.8–99.1; O2SAT 85–99
[2025-07-26 07:34] LABS: PLATELET COUNT (AUTO) 382 K/uL (152-348); RED BLOOD CELL COUNT(AUTO) 2.72 MIL/uL (4.06-5.63); RED CELL DISTRIBUTION WIDTH 18.4 % (12.1-16.2); WHITE BLOOD COUNT (AUTO) 15.9 K/uL (3.6-10.2)
[2025-07-26 08:08] LABS: CREATININE 2.7 mg/dL (0.6-1.3); SODIUM SERUM 143 mmol/L (136-145)
[2025-07-26 08:12] LABS: UREA NITROGEN, BLOOD 97 mg/dL (7-18)
[2025-07-26] MEDS: INSULIN REGULAR, HUMAN 1000 UNIT/10 ML VIAL SQ PRN (09:03)
[2025-07-26] MEDS: IV 1/2NS 1000 ML 1,000 ML IV PRN (14:45)
[2025-07-26] MEDS: LORAZEPAM 1 MG TABLET PO PRN (22:55)
[2025-07-27] VITALS (9 sets, daily range): BP systolic 100–161; BP diastolic 48–76; TEMP 97.7–99.7; O2SAT 96–99
[2025-07-27] MEDS: HYDROCODONE/APAP 10-325 MG TABLET PO PRN (03:14)
[2025-07-27 07:03] LABS: ASPARTATE AMINOTRANSFERASE 12 U/L (15-37); CREATININE 2.8 mg/dL (0.6-1.3); SODIUM SERUM 144 mmol/L (136-145); TOTAL PROTEIN, SERUM 6.5 g/dL (6.4-8.2)
[2025-07-27 07:05] LABS: PLATELET COUNT (AUTO) 341 K/uL (152-348); RED BLOOD CELL COUNT(AUTO) 2.73 MIL/uL (4.06-5.63); RED CELL DISTRIBUTION WIDTH 18.4 % (12.1-16.2); WHITE BLOOD COUNT (AUTO) 13.6 K/uL (3.6-10.2)
[2025-07-27 07:27] LABS: UREA NITROGEN, BLOOD 103 mg/dL (7-18)
[2025-07-27] MEDS: ONDANSETRON 4 MG/2 ML VIAL IV PRN (20:03)
[2025-07-28] VITALS (10 sets, daily range): BP systolic 124–144; BP diastolic 54–68; TEMP 97.8–98.7; O2SAT 94–100
[2025-07-28 06:22] LABS: PLATELET COUNT (AUTO) 355 K/uL (152-348); RED BLOOD CELL COUNT(AUTO) 2.71 MIL/uL (4.06-5.63); RED CELL DISTRIBUTION WIDTH 18.9 % (12.1-16.2); WHITE BLOOD COUNT (AUTO) 13.2 K/uL (3.6-10.2)
[2025-07-28 06:44] LABS: CREATININE 3.0 mg/dL (0.6-1.3); SODIUM SERUM 144 mmol/L (136-145)
[2025-07-28 07:14] LABS: UREA NITROGEN, BLOOD 106 mg/dL (7-18)
[2025-07-28] MEDS: SODIUM ZIRCONIUM CYCLOSILICATE 10 GM POWD.PACK PO SCH (10:30)
[2025-07-28 14:39] LABS: CREATININE 3.2 mg/dL (0.6-1.3); SODIUM SERUM 144 mmol/L (136-145)
[2025-07-28 14:41] LABS: UREA NITROGEN, BLOOD 111 mg/dL (7-18)
[2025-07-28] MEDS: DEXTROSE 50% 50 ML DISP.SYRIN IV ONE ×2 (16:00→17:40)
[2025-07-28] MEDS: SODIUM BICARBONATE 8.4% 50 MEQ/50 ML DISP.SYRIN IV ONE ×2 (17:40→19:00)
[2025-07-28] MEDS: INSULIN REGULAR, HUMAN 1000 UNIT/10 ML VIAL IV ONE (17:41)
[2025-07-28] MEDS: FUROSEMIDE 40 MG/4 ML VIAL IV ONE (17:42)
[2025-07-28 18:43] LABS: CREATININE 3.3 mg/dL (0.6-1.3); SODIUM SERUM 145 mmol/L (136-145)
[2025-07-28 18:44] LABS: UREA NITROGEN, BLOOD 114 mg/dL (7-18)
[2025-07-28] MEDS: LINEZOLID 600 MG TABLET PO SCH (22:12)
[2025-07-29] VITALS (9 sets, daily range): BP systolic 154–159; BP diastolic 52–60; TEMP 97.8–98.1; O2SAT 95–100
[2025-07-29 07:24] LABS: PLATELET COUNT (AUTO) 331 K/uL (152-348); RED BLOOD CELL COUNT(AUTO) 2.69 MIL/uL (4.06-5.63); RED CELL DISTRIBUTION WIDTH 18.3 % (12.1-16.2); WHITE BLOOD COUNT (AUTO) 11.9 K/uL (3.6-10.2)
[2025-07-29 07:55] LABS: ASPARTATE AMINOTRANSFERASE 9 U/L (15-37); CREATININE 3.4 mg/dL (0.6-1.3); SODIUM SERUM 144 mmol/L (136-145); TOTAL PROTEIN, SERUM 6.8 g/dL (6.4-8.2)
[2025-07-29 08:08] LABS: UREA NITROGEN, BLOOD 116 mg/dL (7-18)
[2025-07-29] MEDS: SODIUM ZIRCONIUM CYCLOSILICATE 10 GM POWD.PACK PO ONE (12:44)
[2025-07-30] VITALS (14 sets, daily range): BP systolic 122–181; BP diastolic 46–82; TEMP 97.3–98.7; O2SAT 93–97
[2025-07-30 06:59] LABS: ASPARTATE AMINOTRANSFERASE 14 U/L (15-37); CREATININE 2.5 mg/dL (0.6-1.3); SODIUM SERUM 146 mmol/L (136-145); TOTAL PROTEIN, SERUM 6.2 g/dL (6.4-8.2)
[2025-07-30 07:10] LABS: PLATELET COUNT (AUTO) 263 K/uL (152-348); RED CELL DISTRIBUTION WIDTH 18.4 % (12.1-16.2); WHITE BLOOD COUNT (AUTO) 11.9 K/uL (3.6-10.2)
[2025-07-30 07:30] LABS: RED BLOOD CELL COUNT(AUTO) 2.49 MIL/uL (4.06-5.63); UREA NITROGEN, BLOOD 81 mg/dL (7-18)
[2025-07-30 08:53] LABS: EOSINOPHILS % (MANUAL) 1 % (0-8); LYMPHOCYTES % (MANUAL) 5 % (20-40); MONOCYTES % (MANUAL) 5 % (2-10); NEUTROPHILS % (MANUAL) 89 % (42-75)
[2025-07-30 08:54] LABS: PLATELET ESTIMATE ADEQUATE
[2025-07-30 11:07] LABS: A/G RATIO 0.6 (0.7-1.7); BETA GLOBULIN 0.9 g/dL (0.7-1.3); GLOBULIN, TOTAL 3.7 g/dL (2.2-3.9); M-SPIKE 0.2 g/dL (Not Observed); PROTEIN, TOTAL 6.0 g/dL (6.0-8.5)
[2025-07-31] VITALS (35 sets, daily range): BP systolic 39–186; BP diastolic 23–88; TEMP 97.4–98.5; O2SAT 92–100
[2025-07-31 06:07] LABS: HEPATITIS B CORE AB, IgM Negative (Negative); HEPATITIS B CORE AB, TOTAL Negative (Negative); HEPATITIS B SURFACE AB, QUAL Reactive (.); HEPATITIS B SURFACE AG Negative (Negative); HEPATITIS C VIRUS ANTIBODY Non Reactive (Non Reactive)
[2025-07-31 12:17] LABS: ABG BASE EXCESS 2.0 mmol/L (-2.0-3.0); ABG HCO3 29.1 mmol/L (21.0-28.0); ABG PCO2 58.7 mmHg (35.0-48.0); ABG PH 7.313 (7.350-7.450); ABG PO2 53.9 mmHg (83.0-108.0); ABG SITE LEFT RADIAL; ABG TOTAL HEMOGLOBIN 10.2 G/dL (13.5-17.5); AaDO2 84.4 mmHg; FIO2 32.0 %; FLOW, BLOOD GAS 3.00 L/min (0.00-30.00)
[2025-07-31 13:30] LABS: PLATELET COUNT (AUTO) 341 K/uL (152-348); RED BLOOD CELL COUNT(AUTO) 3.56 MIL/uL (4.06-5.63); RED CELL DISTRIBUTION WIDTH 16.9 % (12.1-16.2); WHITE BLOOD COUNT (AUTO) 18.0 K/uL (3.6-10.2)
[2025-07-31 13:41] LABS: CREATININE 1.7 mg/dL (0.6-1.3); SODIUM SERUM 141 mmol/L (136-145); UREA NITROGEN, BLOOD 40 mg/dL (7-18)
[2025-07-31] MEDS ORDERED: CEFEPIME HCL 2 GM in IV DEXTROSE 5% 100 ML IV SCH (14:15)
[2025-07-31] MEDS: NOREPINEPHRINE 8MG/NS 250ML 250 ML IV PRN (14:22)
[2025-07-31 14:54] LABS: ABG BASE EXCESS 1.8 mmol/L (-2.0-3.0); ABG HCO3 26.6 mmol/L (21.0-28.0); ABG PCO2 43.0 mmHg (35.0-48.0); ABG PH 7.410 (7.350-7.450); ABG PO2 374.7 mmHg (83.0-108.0); ABG SITE LEFT RADIAL; ABG TOTAL HEMOGLOBIN 9.2 G/dL (13.5-17.5); AaDO2 99.8 mmHg; FIO2 100.0 %; PEEP,BG 5.0 cmH20; SET RATE, BG 22.0; VT, ABG 500 mL
[2025-07-31] MEDS: CEFEPIME HCL 2 GM in IV DEXTROSE 5% 100 ML IV SCH (15:28)
[2025-07-31] MEDS: PROPOFOL 100 ML IV PRN (15:38)
[2025-07-31] MEDS ORDERED: CEFEPIME (MAXEPIME) 1 G in IV DEXTROSE 5% 50 ML IV SCH (21:00)
[2025-08-01] VITALS (53 sets, daily range): BP systolic 102–168; BP diastolic 49–114; TEMP 96.8–98.9; O2SAT 97–100
[2025-08-01 05:10] LABS: PLATELET COUNT (AUTO) 174 K/uL (152-348); RED BLOOD CELL COUNT(AUTO) 3.05 MIL/uL (4.06-5.63); RED CELL DISTRIBUTION WIDTH 17.0 % (12.1-16.2); WHITE BLOOD COUNT (AUTO) 10.6 K/uL (3.6-10.2)
[2025-08-01 09:17] LABS: ABG BASE EXCESS 2.7 mmol/L (-2.0-3.0); ABG HCO3 24.1 mmol/L (21.0-28.0); ABG PCO2 25.4 mmHg (35.0-48.0); ABG PH 7.595 (7.350-7.450); ABG PO2 77.6 mmHg (83.0-108.0); ABG SITE RIGHT RADIAL; ABG TOTAL HEMOGLOBIN 8.1 G/dL (13.5-17.5); AaDO2 97.3 mmHg; FIO2 40.0 %; PEEP,BG 5.0 cmH20; SET RATE, BG 22.0; VT, ABG 500 mL
[2025-08-01] MEDS: NOREPINEPHRINE 8MG/NS 250ML 250 ML IV PRN (17:07)
[2025-08-01] MEDS ORDERED: AMIODARONE HCL IV 450 MG in IV DEXTROSE 5% 250 ML IV PRN (17:30)
[2025-08-01] MEDS: AMIODARONE HCL IV 150 MG in IV DEXTROSE 5% 100 ML IV ONE (18:00)
[2025-08-01] MEDS ORDERED: LIDOCAINE DRIP 2GM /D5W 500 ML 500 ML IV PRN (18:15)
[2025-08-01] MEDS: AMIODARONE HCL 200 MG TABLET PO SCH (21:00)
[2025-08-01] MEDS: CEFEPIME (MAXEPIME) 1 G in IV DEXTROSE 5% 50 ML IV SCH (21:10)
[2025-08-02] VITALS (34 sets, daily range): BP systolic 98–170; BP diastolic 52–88; TEMP 96.3–97.8; O2SAT 97–100
[2025-08-02 05:13] LABS: PLATELET COUNT (AUTO) 151 K/uL (152-348); RED BLOOD CELL COUNT(AUTO) 2.97 MIL/uL (4.06-5.63); RED CELL DISTRIBUTION WIDTH 17.6 % (12.1-16.2); WHITE BLOOD COUNT (AUTO) 9.8 K/uL (3.6-10.2)
[2025-08-02 05:25] LABS: CREATININE 1.1 mg/dL (0.6-1.3); SODIUM SERUM 141 mmol/L (136-145); UREA NITROGEN, BLOOD 34 mg/dL (7-18)
[2025-08-02 05:46] LABS: ABG BASE EXCESS 3.4 mmol/L (-2.0-3.0); ABG HCO3 26.7 mmol/L (21.0-28.0); ABG PCO2 35.2 mmHg (35.0-48.0); ABG PH 7.498 (7.350-7.450); ABG PO2 91.6 mmHg (83.0-108.0); ABG SITE LEFT BRACHIAL; ABG TOTAL HEMOGLOBIN 8.3 G/dL (13.5-17.5); AaDO2 97.6 mmHg; FIO2 40.0 %; PEEP,BG 5.0 cmH20; SET RATE, BG 15.0; VT, ABG 500 mL
[2025-08-02] MEDS: POTASSIUM CHLORIDE 50 ML IV SCH (08:34)
[2025-08-02] MEDS ORDERED: GABAPENTIN 300 MG CAPSULE PO SCH (09:00)
[2025-08-02] MEDS: GABAPENTIN 100 MG CAPSULE PO SCH (09:01)
[2025-08-02] MEDS ORDERED: LIDOCAINE HCL 2% 20 ML VIAL IJ ONE (16:45)
[2025-08-03] VITALS (31 sets, daily range): BP systolic 127–195; BP diastolic 53–82; TEMP 97.6–98.8; O2SAT 91–100
[2025-08-03 05:19] LABS: PLATELET COUNT (AUTO) 164 K/uL (152-348); RED BLOOD CELL COUNT(AUTO) 3.10 MIL/uL (4.06-5.63); RED CELL DISTRIBUTION WIDTH 17.8 % (12.1-16.2); WHITE BLOOD COUNT (AUTO) 8.5 K/uL (3.6-10.2)
[2025-08-03 05:26] LABS: CREATININE 1.0 mg/dL (0.6-1.3); SODIUM SERUM 145 mmol/L (136-145); UREA NITROGEN, BLOOD 28 mg/dL (7-18)
[2025-08-03 06:08] LABS: ABG BASE EXCESS 3.3 mmol/L (-2.0-3.0); ABG HCO3 26.8 mmol/L (21.0-28.0); ABG PCO2 36.8 mmHg (35.0-48.0); ABG PH 7.480 (7.350-7.450); ABG PO2 97.7 mmHg (83.0-108.0); ABG SITE LEFT RADIAL; ABG TOTAL HEMOGLOBIN 11.2 G/dL (13.5-17.5); AaDO2 97.8 mmHg; FIO2 40.0 %; PEEP,BG 5.0 cmH20; SET RATE, BG 15.0; VT, ABG 500 mL
[2025-08-03] MEDS: POTASSIUM CHLORIDE 50 ML IV SCH (08:17)
[2025-08-03] MEDS: POTASSIUM CHLORIDE 20 MEQ POWDER PACKET GT ONE (08:17)
[2025-08-03] MEDS: FUROSEMIDE 40 MG/4 ML VIAL IV SCH (08:18)
[2025-08-03] MEDS ORDERED: LIDOCAINE HCL 1% 20 ML VIAL IJ ONE (10:00)
[2025-08-03] MEDS: LIDOCAINE HCL 1% 20 ML VIAL ONE (12:06)
[2025-08-03] MEDS: SODIUM HYPOCHLORITE 0.125% (QUARTER STRENGTH) 473 ML BOTTLE TP SCH (12:06)
[2025-08-03] MEDS: CEFEPIME HCL 2 GM in IV DEXTROSE 5% 100 ML IV SCH (12:08)
[2025-08-03] MEDS ORDERED: PIPERACILLIN SODIUM/TAZOBACTAM 3.375 G in IV DEXTROSE 5% 50 ML IV SCH (12:30)
[2025-08-03] MEDS: PIPERACILLIN SODIUM/TAZOBACTAM 3.375 G in IV DEXTROSE 5% 100 ML IV SCH (13:55)
[2025-08-03] MEDS ORDERED: MEROPENEM 1 G in IV NORMAL SALINE 100 ML IV SCH (17:00)
[2025-08-03] MEDS: MEROPENEM 1 G in IV NORMAL SALINE 100 ML IV SCH (17:32)
[2025-08-04] VITALS (45 sets, daily range): BP systolic 123–191; BP diastolic 48–84; TEMP 97.5–99; O2SAT 95–100
[2025-08-04 05:06] LABS: PLATELET COUNT (AUTO) 179 K/uL (152-348); RED BLOOD CELL COUNT(AUTO) 3.15 MIL/uL (4.06-5.63); RED CELL DISTRIBUTION WIDTH 17.8 % (12.1-16.2); WHITE BLOOD COUNT (AUTO) 11.5 K/uL (3.6-10.2)
[2025-08-04 05:17] LABS: CREATININE 1.3 mg/dL (0.6-1.3); SODIUM SERUM 147 mmol/L (136-145); UREA NITROGEN, BLOOD 27 mg/dL (7-18)
[2025-08-04 07:31] LABS: ABG BASE EXCESS 4.4 mmol/L (-2.0-3.0); ABG HCO3 27.4 mmol/L (21.0-28.0); ABG PCO2 34.5 mmHg (35.0-48.0); ABG PH 7.517 (7.350-7.450); ABG PO2 95.5 mmHg (83.0-108.0); ABG TOTAL HEMOGLOBIN 9.9 G/dL (13.5-17.5); AaDO2 97.9 mmHg; FIO2 30.0 %; PEEP,BG 5.0 cmH20
[2025-08-04] MEDS: MAGNESIUM SULFATE/D5W 100 ML IV SCH (10:25)
[2025-08-04 15:08] LABS: HIV-1/2 ANTIBODY NON REACTIVE (NONREACTIVE)
[2025-08-05] VITALS (56 sets, daily range): BP systolic 88–167; BP diastolic 43–147; TEMP 98.5–100.5; O2SAT 86–100
[2025-08-05 05:44] LABS: ABG BASE EXCESS 3.1 mmol/L (-2.0-3.0); ABG HCO3 26.9 mmol/L (21.0-28.0); ABG PCO2 37.9 mmHg (35.0-48.0); ABG PH 7.469 (7.350-7.450); ABG PO2 88.5 mmHg (83.0-108.0); ABG SITE RIGHT RADIAL; ABG TOTAL HEMOGLOBIN 10.7 G/dL (13.5-17.5); AaDO2 97.2 mmHg; FIO2 32.0 %; FLOW, BLOOD GAS 3.00 L/min (0.00-30.00)
[2025-08-05 05:59] LABS: CREATININE 1.3 mg/dL (0.6-1.3); SODIUM SERUM 146 mmol/L (136-145); UREA NITROGEN, BLOOD 27 mg/dL (7-18)
[2025-08-05 06:06] LABS: PLATELET COUNT (AUTO) 212 K/uL (152-348); RED BLOOD CELL COUNT(AUTO) 3.38 MIL/uL (4.06-5.63); RED CELL DISTRIBUTION WIDTH 17.9 % (12.1-16.2); WHITE BLOOD COUNT (AUTO) 14.7 K/uL (3.6-10.2)
[2025-08-05] MEDS: METOPROLOL TARTRATE 5 MG/5 ML VIAL IVP PRN (07:20)
[2025-08-05] MEDS: AMIODARONE HCL IV 150 MG in IV DEXTROSE 5% 100 ML IV ONE (07:51)
[2025-08-05] MEDS: AMIODARONE HCL IV 450 MG in IV DEXTROSE 5% 250 ML IV PRN (07:58)
[2025-08-05] MEDS: METOPROLOL TARTRATE 25 MG TABLET PO SCH (14:03)
[2025-08-06] VITALS (54 sets, daily range): BP systolic 110–173; BP diastolic 50–90; TEMP 97.6–100.7; O2SAT 86–100
[2025-08-06 06:01] LABS: CREATININE 1.3 mg/dL (0.6-1.3); SODIUM SERUM 146 mmol/L (136-145); UREA NITROGEN, BLOOD 29 mg/dL (7-18)
[2025-08-06 07:20] LABS: PLATELET COUNT (AUTO) 209 K/uL (152-348); RED BLOOD CELL COUNT(AUTO) 3.56 MIL/uL (4.06-5.63); RED CELL DISTRIBUTION WIDTH 17.5 % (12.1-16.2); WHITE BLOOD COUNT (AUTO) 13.8 K/uL (3.6-10.2)
[2025-08-06] MEDS: MAGNESIUM SULFATE/D5W 100 ML IV SCH (08:08)
[2025-08-06] MEDS: POTASSIUM CHLORIDE 50 ML IV SCH (08:08)
[2025-08-06] MEDS: BUDESONIDE 0.5 MG/2 ML NEBU NEB SCH ×2 (09:01→19:31)
[2025-08-06] MEDS: METOPROLOL TARTRATE 50 MG TABLET PO SCH (09:20)
[2025-08-06] MEDS: MORPHINE SULFATE 2 MG/1 ML DISP.SYRIN IV PRN (16:29)
[2025-08-06] MEDS: TRAZODONE 50 MG TABLET GT SCH (21:05)
[2025-08-07] VITALS (51 sets, daily range): BP systolic 120–163; BP diastolic 47–92; TEMP 97.1–99.3; O2SAT 97–100
[2025-08-07 05:21] LABS: PLATELET COUNT (AUTO) 224 K/uL (152-348); RED BLOOD CELL COUNT(AUTO) 3.17 MIL/uL (4.06-5.63); RED CELL DISTRIBUTION WIDTH 17.1 % (12.1-16.2); WHITE BLOOD COUNT (AUTO) 12.6 K/uL (3.6-10.2)
[2025-08-07 05:33] LABS: CREATININE 1.3 mg/dL (0.6-1.3); SODIUM SERUM 148 mmol/L (136-145); UREA NITROGEN, BLOOD 32 mg/dL (7-18)
[2025-08-07 07:41] LABS: ABG BASE EXCESS 7.3 mmol/L (-2.0-3.0); ABG HCO3 32.9 mmol/L (21.0-28.0); ABG PCO2 51.7 mmHg (35.0-48.0); ABG PH 7.421 (7.350-7.450); ABG PO2 91.9 mmHg (83.0-108.0); ABG SITE LEFT RADIAL; ABG TOTAL HEMOGLOBIN 9.8 G/dL (13.5-17.5); AaDO2 97.0 mmHg; FIO2 36.0 %; FLOW, BLOOD GAS 4.00 L/min (0.00-30.00)
[2025-08-07] MEDS: PREGABALIN 50 MG CAPSULE PO SCH (14:40)
[2025-08-07] MEDS ORDERED: GLUCERNA 1.2 1000ML LIQUID GT PRN (15:00)
[2025-08-07] MEDS: GLUCERNA 1.2 1000ML LIQUID GT PRN (15:14)
[2025-08-07] MEDS: ARGININE/GLUTAMINE/CALCIUM BMB 1 EACH POWD.PACK NG SCH (17:00)
[2025-08-07] MEDS ORDERED: ARGININE/GLUTAMINE/CALCIUM BMB 1 EACH POWD.PACK NG SCH (17:00)
[2025-08-07] MEDS ORDERED: BUDESONIDE 0.5 MG/2 ML NEBU ONE (19:54)
[2025-08-08] VITALS (47 sets, daily range): BP systolic 77–180; BP diastolic 41–99; TEMP 98.6–99; O2SAT 94–100
[2025-08-08 05:07] LABS: PLATELET COUNT (AUTO) 226 K/uL (152-348); RED BLOOD CELL COUNT(AUTO) 3.47 MIL/uL (4.06-5.63); RED CELL DISTRIBUTION WIDTH 17.2 % (12.1-16.2); WHITE BLOOD COUNT (AUTO) 10.7 K/uL (3.6-10.2)
[2025-08-08 05:18] LABS: CREATININE 1.3 mg/dL (0.6-1.3); SODIUM SERUM 149 mmol/L (136-145); UREA NITROGEN, BLOOD 33 mg/dL (7-18)
[2025-08-08 06:04] LABS: ABG BASE EXCESS 10.5 mmol/L (-2.0-3.0); ABG HCO3 36.0 mmol/L (21.0-28.0); ABG PCO2 53.7 mmHg (35.0-48.0); ABG PH 7.444 (7.350-7.450); ABG PO2 92.2 mmHg (83.0-108.0); ABG SITE LEFT RADIAL; ABG TOTAL HEMOGLOBIN 9.9 G/dL (13.5-17.5); AaDO2 97.2 mmHg; FIO2 32.0 %; FLOW, BLOOD GAS 3.00 L/min (0.00-30.00)
[2025-08-08] MEDS: ALBUMIN HUMAN 25% 100 ML IV ONE (20:59)
[2025-08-08] MEDS ORDERED: NOREPINEPHRINE 8MG/NS 250ML 250 ML IV PRN (22:30)
[2025-08-09] VITALS (53 sets, daily range): BP systolic 80–183; BP diastolic 36–100; TEMP 97.7–98.8; O2SAT 89–100
[2025-08-09] MEDS: FUROSEMIDE 40 MG TABLET PO SCH (08:18)
[2025-08-09] MEDS ORDERED: METOPROLOL TARTRATE 5 MG/5 ML VIAL IVP PRN (19:45)
[2025-08-09] MEDS: METOPROLOL TARTRATE 5 MG/5 ML VIAL IVP ONE (19:46)
[2025-08-09] MEDS: DILTIAZEM HCL 25 MG IV IV ONE (20:45)
[2025-08-09] MEDS ORDERED: DILTIAZEM HCL 25 MG IV ONE (20:58)
[2025-08-09] MEDS: DILTIAZEM HCL IV 125 MG in IV NORMAL SALINE 100 ML IV PRN (21:09)
[2025-08-09] MEDS: NOREPINEPHRINE 8MG/NS 250ML 250 ML IV PRN (22:24)
[2025-08-10] VITALS (68 sets, daily range): BP systolic 92–189; BP diastolic 53–104; TEMP 96.6–98.6; O2SAT 92–100
[2025-08-10 05:09] LABS: PLATELET COUNT (AUTO) 243 K/uL (152-348); RED BLOOD CELL COUNT(AUTO) 3.47 MIL/uL (4.06-5.63); RED CELL DISTRIBUTION WIDTH 17.2 % (12.1-16.2); WHITE BLOOD COUNT (AUTO) 11.5 K/uL (3.6-10.2)
[2025-08-10 05:18] LABS: CREATININE 1.3 mg/dL (0.6-1.3); SODIUM SERUM 146 mmol/L (136-145); UREA NITROGEN, BLOOD 75 mg/dL (7-18)
[2025-08-10] MEDS: METOPROLOL TARTRATE 50 MG TABLET PO SCH (08:56)
[2025-08-11] VITALS (34 sets, daily range): BP systolic 106–162; BP diastolic 51–73; TEMP 97.5–98.6; O2SAT 93–100
[2025-08-11 11:41] LABS: ABG BASE EXCESS 12.3 mmol/L (-2.0-3.0); ABG HCO3 39.1 mmol/L (21.0-28.0); ABG PCO2 65.7 mmHg (35.0-48.0); ABG PH 7.392 (7.350-7.450); ABG PO2 67.2 mmHg (83.0-108.0); ABG TOTAL HEMOGLOBIN 8.9 G/dL (13.5-17.5); AaDO2 92.5 mmHg; FIO2 32.0 %; FLOW, BLOOD GAS 3.00 L/min (0.00-30.00)
[2025-08-11 23:38] LABS: ASPARTATE AMINOTRANSFERASE 10 U/L (15-37); CREATININE 1.7 mg/dL (0.6-1.3); SODIUM SERUM 147 mmol/L (136-145); TOTAL PROTEIN, SERUM 6.2 g/dL (6.4-8.2)
[2025-08-11 23:40] LABS: UREA NITROGEN, BLOOD 115 mg/dL (7-18)
[2025-08-12] VITALS (76 sets, daily range): BP systolic 84–170; BP diastolic 45–86; TEMP 97.4–97.9; O2SAT 94–100
[2025-08-12 06:08] LABS: PLATELET COUNT (AUTO) 219 K/uL (152-348); RED BLOOD CELL COUNT(AUTO) 2.94 MIL/uL (4.06-5.63); RED CELL DISTRIBUTION WIDTH 17.4 % (12.1-16.2); WHITE BLOOD COUNT (AUTO) 10.4 K/uL (3.6-10.2)
[2025-08-12 06:11] LABS: CREATININE 1.7 mg/dL (0.6-1.3); SODIUM SERUM 151 mmol/L (136-145)
[2025-08-12 06:13] LABS: UREA NITROGEN, BLOOD 106 mg/dL (7-18)
[2025-08-12 07:00] LABS: EOSINOPHILS % (MANUAL) 1 % (0-8); LYMPHOCYTES % (MANUAL) 5 % (20-40); MONOCYTES % (MANUAL) 5 % (2-10); NEUTROPHILS % (MANUAL) 89 % (42-75); PLATELET ESTIMATE ADEQUATE
[2025-08-12 08:13] LABS: ABG BASE EXCESS 12.2 mmol/L (-2.0-3.0); ABG HCO3 39.9 mmol/L (21.0-28.0); ABG PCO2 73.3 mmHg (35.0-48.0); ABG PH 7.354 (7.350-7.450); ABG PO2 70.9 mmHg (83.0-108.0); ABG SITE LEFT RADIAL; ABG TOTAL HEMOGLOBIN 9.6 G/dL (13.5-17.5); AaDO2 92.8 mmHg; FIO2 28.0 %; FLOW, BLOOD GAS 2.00 L/min (0.00-30.00)
[2025-08-12] MEDS ORDERED: PROPOFOL 50 ML IV PRN (08:30)
[2025-08-12] MEDS ORDERED: FENTANYL CITRATE/PF 1,000 MCG in IV NORMAL SALINE 80 ML IV PRN (08:30)
[2025-08-12] MEDS: PROPOFOL 100 ML IV PRN (08:53)
[2025-08-12] MEDS: ETOMIDATE 20 MG/10 ML VIAL IV ONE (08:57)
[2025-08-12] MEDS: ROCURONIUM BROMIDE 50 MG/5 ML VIAL IV ONE (08:57)
[2025-08-12 09:53] LABS: ABG BASE EXCESS 13.6 mmol/L (-2.0-3.0); ABG HCO3 35.6 mmol/L (21.0-28.0); ABG PCO2 34.1 mmHg (35.0-48.0); ABG PH 7.636 (7.350-7.450); ABG PO2 88.4 mmHg (83.0-108.0); ABG SITE LEFT RADIAL; ABG TOTAL HEMOGLOBIN 8.1 G/dL (13.5-17.5); AaDO2 98.0 mmHg; FIO2 70.0 %; PEEP,BG 5.0 cmH20; SET RATE, BG 22.0; VT, ABG 500 mL
[2025-08-12 12:54] LABS: ABG BASE EXCESS 11.3 mmol/L (-2.0-3.0); ABG HCO3 33.0 mmol/L (21.0-28.0); ABG PCO2 31.0 mmHg (35.0-48.0); ABG PH 7.645 (7.350-7.450); ABG PO2 127.7 mmHg (83.0-108.0); ABG TOTAL HEMOGLOBIN 6.8 G/dL (13.5-17.5); AaDO2 99.1 mmHg; FIO2 70.0 %; PEEP,BG 5.0 cmH20; SET RATE, BG 16.0; VT, ABG 500 mL
[2025-08-12 14:14] LABS: *OCCULT BLOOD STOOL POSITIVE (NEGATIVE)
[2025-08-12 15:18] LABS: ABG BASE EXCESS 16.7 mmol/L (-2.0-3.0); ABG HCO3 42.1 mmol/L (21.0-28.0); ABG PCO2 57.6 mmHg (35.0-48.0); ABG PH 7.482 (7.350-7.450); ABG PO2 172.9 mmHg (83.0-108.0); ABG SITE LEFT RADIAL; ABG TOTAL HEMOGLOBIN 8.6 G/dL (13.5-17.5); AaDO2 99.2 mmHg; FIO2 60.0 %; PEEP,BG 5.0 cmH20; SET RATE, BG 12.0; VT, ABG 450 mL
[2025-08-13] VITALS (102 sets, daily range): BP systolic 71–176; BP diastolic 34–87; TEMP 96.4–98.2; O2SAT 97–100
[2025-08-13 05:01] LABS: PLATELET COUNT (AUTO) 244 K/uL (152-348); RED BLOOD CELL COUNT(AUTO) 2.78 MIL/uL (4.06-5.63); RED CELL DISTRIBUTION WIDTH 17.8 % (12.1-16.2); WHITE BLOOD COUNT (AUTO) 7.8 K/uL (3.6-10.2)
[2025-08-13 05:11] LABS: CREATININE 1.5 mg/dL (0.6-1.3); SODIUM SERUM 151 mmol/L (136-145)
[2025-08-13 05:24] LABS: UREA NITROGEN, BLOOD 113 mg/dL (7-18)
[2025-08-13 06:17] LABS: ABG BASE EXCESS 11.0 mmol/L (-2.0-3.0); ABG HCO3 35.0 mmol/L (21.0-28.0); ABG PCO2 44.9 mmHg (35.0-48.0); ABG PH 7.510 (7.350-7.450); ABG PO2 85.9 mmHg (83.0-108.0); ABG SITE LEFT RADIAL; ABG TOTAL HEMOGLOBIN 7.5 G/dL (13.5-17.5); AaDO2 97.2 mmHg; FIO2 30.0 %; PEEP,BG 5.0 cmH20; SET RATE, BG 12.0; VT, ABG 450 mL
[2025-08-14] VITALS (94 sets, daily range): BP systolic 81–150; BP diastolic 31–60; TEMP 98.7–100.6; O2SAT 95–100
[2025-08-14 05:13] LABS: PLATELET COUNT (AUTO) 237 K/uL (152-348); RED BLOOD CELL COUNT(AUTO) 2.50 MIL/uL (4.06-5.63); RED CELL DISTRIBUTION WIDTH 17.3 % (12.1-16.2); WHITE BLOOD COUNT (AUTO) 10.1 K/uL (3.6-10.2)
[2025-08-14 05:46] LABS: CREATININE 1.6 mg/dL (0.6-1.3); SODIUM SERUM 150 mmol/L (136-145)
[2025-08-14 05:48] LABS: UREA NITROGEN, BLOOD 108 mg/dL (7-18)
[2025-08-14 06:08] LABS: ABG BASE EXCESS 5.9 mmol/L (-2.0-3.0); ABG HCO3 29.7 mmol/L (21.0-28.0); ABG PCO2 39.9 mmHg (35.0-48.0); ABG PH 7.489 (7.350-7.450); ABG PO2 83.3 mmHg (83.0-108.0); ABG SITE LEFT RADIAL; ABG TOTAL HEMOGLOBIN 10.8 G/dL (13.5-17.5); AaDO2 96.9 mmHg; FIO2 30.0 %; PEEP,BG 5.0 cmH20; SET RATE, BG 12.0; VT, ABG 450 mL
[2025-08-15] VITALS (91 sets, daily range): BP systolic 80–171; BP diastolic 37–64; TEMP 97.7–99.3; O2SAT 96–100
[2025-08-15 05:20] LABS: PLATELET COUNT (AUTO) 212 K/uL (152-348); RED BLOOD CELL COUNT(AUTO) 2.81 MIL/uL (4.06-5.63); RED CELL DISTRIBUTION WIDTH 17.1 % (12.1-16.2); WHITE BLOOD COUNT (AUTO) 8.4 K/uL (3.6-10.2)
[2025-08-15 05:31] LABS: CREATININE 1.5 mg/dL (0.6-1.3); SODIUM SERUM 153 mmol/L (136-145)
[2025-08-15 05:36] LABS: UREA NITROGEN, BLOOD 86 mg/dL (7-18)
[2025-08-15] MEDS ORDERED: PROPOFOL 200 MG/20 ML BOTTLE ONE (17:00)
[2025-08-15] MEDS ORDERED: LIDOCAINE-MPF 2% 5 ML VIAL ONE (17:00)
[2025-08-15] MEDS ORDERED: CEFAZOLIN 1 G VIAL ONE (17:00)
[2025-08-15] MEDS ORDERED: ETOMIDATE 20 MG/10 ML VIAL ONE (17:00)
[2025-08-15] MEDS ORDERED: ROCURONIUM BROMIDE 50 MG/5 ML VIAL ONE (17:00)
[2025-08-15] MEDS ORDERED: DIATR MEGLU/DIATRIZOATE SODIUM 30 ML BOTTLE ONE (18:21)
[2025-08-15] MEDS ORDERED: INSULIN REGULAR, HUMAN 1000 UNIT/10 ML VIAL ONE (23:02)
[2025-08-16] VITALS (51 sets, daily range): BP systolic 84–178; BP diastolic 46–73; TEMP 97.8–98.8; O2SAT 98–100
[2025-08-16 05:12] LABS: PLATELET COUNT (AUTO) 178 K/uL (152-348); RED BLOOD CELL COUNT(AUTO) 3.00 MIL/uL (4.06-5.63); RED CELL DISTRIBUTION WIDTH 16.9 % (12.1-16.2); WHITE BLOOD COUNT (AUTO) 6.7 K/uL (3.6-10.2)
[2025-08-16 05:20] LABS: CREATININE 1.1 mg/dL (0.6-1.3); SODIUM SERUM 153 mmol/L (136-145); UREA NITROGEN, BLOOD 68 mg/dL (7-18)
[2025-08-16 05:39] LABS: ABG BASE EXCESS 2.5 mmol/L (-2.0-3.0); ABG HCO3 26.8 mmol/L (21.0-28.0); ABG PCO2 40.6 mmHg (35.0-48.0); ABG PH 7.438 (7.350-7.450); ABG PO2 109.6 mmHg (83.0-108.0); ABG SITE LEFT RADIAL; ABG TOTAL HEMOGLOBIN 8.0 G/dL (13.5-17.5); AaDO2 98.1 mmHg; FIO2 40.0 %; PEEP,BG 5.0 cmH20; SET RATE, BG 12.0; VT, ABG 450 mL
[2025-08-16] MEDS: GLUCERNA 1.2 1000ML LIQUID GT PRN (14:20)
[2025-08-17] VITALS (65 sets, daily range): BP systolic 94–180; BP diastolic 41–70; TEMP 98–99.3; O2SAT 96–100
[2025-08-17 05:08] LABS: PLATELET COUNT (AUTO) 238 K/uL (152-348); RED BLOOD CELL COUNT(AUTO) 2.83 MIL/uL (4.06-5.63); RED CELL DISTRIBUTION WIDTH 16.3 % (12.1-16.2); WHITE BLOOD COUNT (AUTO) 8.0 K/uL (3.6-10.2)
[2025-08-17 05:23] LABS: CREATININE 1.1 mg/dL (0.6-1.3); SODIUM SERUM 149 mmol/L (136-145); UREA NITROGEN, BLOOD 64 mg/dL (7-18)
[2025-08-17 06:28] LABS: ABG BASE EXCESS 3.6 mmol/L (-2.0-3.0); ABG HCO3 28.0 mmol/L (21.0-28.0); ABG PCO2 41.9 mmHg (35.0-48.0); ABG PH 7.443 (7.350-7.450); ABG PO2 104.6 mmHg (83.0-108.0); ABG SITE LEFT RADIAL; ABG TOTAL HEMOGLOBIN 8.5 G/dL (13.5-17.5); AaDO2 98.0 mmHg; FIO2 35.0 %; PEEP,BG 5.0 cmH20; SET RATE, BG 12.0; VT, ABG 450 mL
[2025-08-17] MEDS: POTASSIUM CHLORIDE 20 MEQ POWDER PACKET GT ONE (09:08)
[2025-08-17] MEDS: FUROSEMIDE 40 MG/4 ML VIAL IV ONE (09:08)
[2025-08-17 10:41] LABS: ABG BASE EXCESS 2.4 mmol/L (-2.0-3.0); ABG HCO3 26.8 mmol/L (21.0-28.0); ABG PCO2 40.9 mmHg (35.0-48.0); ABG PH 7.435 (7.350-7.450); ABG PO2 95.7 mmHg (83.0-108.0); ABG SITE RIGHT RADIAL; ABG TOTAL HEMOGLOBIN 8.4 G/dL (13.5-17.5); AaDO2 97.5 mmHg; FIO2 35.0 %; PEEP,BG 5.0 cmH20
[2025-08-18] VITALS (59 sets, daily range): BP systolic 125–183; BP diastolic 56–81; TEMP 98.5–99.7; O2SAT 96–100
[2025-08-18] MEDS ORDERED: DC PROPOFOL ONCE EXTUBATED XX PRN (07:50)
[2025-08-18 08:15] LABS: PLATELET COUNT (AUTO) 160 K/uL (152-348); RED BLOOD CELL COUNT(AUTO) 3.03 MIL/uL (4.06-5.63); RED CELL DISTRIBUTION WIDTH 16.5 % (12.1-16.2); WHITE BLOOD COUNT (AUTO) 9.3 K/uL (3.6-10.2)
[2025-08-18 08:26] LABS: CREATININE 0.9 mg/dL (0.6-1.3); SODIUM SERUM 149 mmol/L (136-145); UREA NITROGEN, BLOOD 58 mg/dL (7-18)
[2025-08-19] VITALS (52 sets, daily range): BP systolic 70–177; BP diastolic 43–86; TEMP 97.5–99.2; O2SAT 90–100
[2025-08-19 05:08] LABS: PLATELET COUNT (AUTO) 198 K/uL (152-348); RED BLOOD CELL COUNT(AUTO) 3.06 MIL/uL (4.06-5.63); RED CELL DISTRIBUTION WIDTH 17.0 % (12.1-16.2); WHITE BLOOD COUNT (AUTO) 8.7 K/uL (3.6-10.2)
[2025-08-19 05:17] LABS: CREATININE 1.0 mg/dL (0.6-1.3); SODIUM SERUM 149 mmol/L (136-145); UREA NITROGEN, BLOOD 59 mg/dL (7-18)
[2025-08-19 05:56] LABS: ABG BASE EXCESS -3.4 mmol/L (-2.0-3.0); ABG HCO3 22.2 mmol/L (21.0-28.0); ABG PCO2 42.7 mmHg (35.0-48.0); ABG PH 7.334 (7.350-7.450); ABG PO2 53.6 mmHg (83.0-108.0); ABG SITE LEFT RADIAL; ABG TOTAL HEMOGLOBIN 8.8 G/dL (13.5-17.5); AaDO2 85.7 mmHg; FIO2 40.0 %; FLOW, BLOOD GAS 5.00 L/min (0.00-30.00)
[2025-08-20] VITALS (50 sets, daily range): BP systolic 111–172; BP diastolic 54–88; TEMP 98.4–99.9; O2SAT 95–100
[2025-08-20 05:06] LABS: PLATELET COUNT (AUTO) 194 K/uL (152-348); RED BLOOD CELL COUNT(AUTO) 3.05 MIL/uL (4.06-5.63); RED CELL DISTRIBUTION WIDTH 17.2 % (12.1-16.2); WHITE BLOOD COUNT (AUTO) 9.7 K/uL (3.6-10.2)
[2025-08-20 05:16] LABS: CREATININE 0.9 mg/dL (0.6-1.3); SODIUM SERUM 149 mmol/L (136-145); UREA NITROGEN, BLOOD 48 mg/dL (7-18)
[2025-08-20 05:52] LABS: ABG BASE EXCESS 4.3 mmol/L (-2.0-3.0); ABG HCO3 30.0 mmol/L (21.0-28.0); ABG PCO2 51.4 mmHg (35.0-48.0); ABG PH 7.384 (7.350-7.450); ABG PO2 62.9 mmHg (83.0-108.0); ABG SITE LEFT RADIAL; ABG TOTAL HEMOGLOBIN 9.0 G/dL (13.5-17.5); AaDO2 91.4 mmHg; FIO2 32.0 %; FLOW, BLOOD GAS 3.00 L/min (0.00-30.00)
[2025-08-20] MEDS: METOPROLOL TARTRATE 50 MG TABLET PO SCH (09:25)
[2025-08-21] VITALS (34 sets, daily range): BP systolic 98–147; BP diastolic 52–117; TEMP 98.3–99; O2SAT 97–100
[2025-08-21 05:15] LABS: CREATININE 0.9 mg/dL (0.6-1.3); SODIUM SERUM 147 mmol/L (136-145); UREA NITROGEN, BLOOD 57 mg/dL (7-18)
[2025-08-21 05:19] LABS: RED CELL DISTRIBUTION WIDTH 17.0 % (12.1-16.2)
[2025-08-21 05:20] LABS: PLATELET COUNT (AUTO) 177 K/uL (152-348)
[2025-08-21 05:24] LABS: RED BLOOD CELL COUNT(AUTO) 2.49 MIL/uL (4.06-5.63)
[2025-08-21 05:26] LABS: WHITE BLOOD COUNT (AUTO) 7.1 K/uL (3.6-10.2)
[2025-08-21 05:42] LABS: ABG BASE EXCESS 1.9 mmol/L (-2.0-3.0); ABG HCO3 27.6 mmol/L (21.0-28.0); ABG PCO2 49.2 mmHg (35.0-48.0); ABG PH 7.367 (7.350-7.450); ABG PO2 91.3 mmHg (83.0-108.0); ABG SITE LEFT RADIAL; ABG TOTAL HEMOGLOBIN 7.9 G/dL (13.5-17.5); AaDO2 96.7 mmHg; FIO2 40.0 %; FLOW, BLOOD GAS 5.00 L/min (0.00-30.00)
[2025-08-21] MEDS: METOPROLOL TARTRATE 50 MG TABLET PO SCH (09:32)
[2025-08-22] VITALS (14 sets, daily range): BP systolic 91–159; BP diastolic 46–78; TEMP 98–99.2; O2SAT 99–100
[2025-08-22 05:08] LABS: PLATELET COUNT (AUTO) 202 K/uL (152-348); RED BLOOD CELL COUNT(AUTO) 2.80 MIL/uL (4.06-5.63); RED CELL DISTRIBUTION WIDTH 17.4 % (12.1-16.2); WHITE BLOOD COUNT (AUTO) 10.3 K/uL (3.6-10.2)
[2025-08-22 05:21] LABS: CREATININE 1.0 mg/dL (0.6-1.3); SODIUM SERUM 140 mmol/L (136-145); UREA NITROGEN, BLOOD 70 mg/dL (7-18)
[2025-08-22] MEDS: SODIUM ZIRCONIUM CYCLOSILICATE 10 GM POWD.PACK NG ONE (08:12)
[2025-08-22] MEDS: METOPROLOL TARTRATE 50 MG TABLET PO SCH (08:13)
[2025-08-22 09:54] LABS: *BILIRUBIN,URIN NEGATIVE (NEGATIVE); *BLOOD, URINE 1+ (NEGATIVE); *CLARITY,URINE CLEAR (CLEAR); *COLOR,URINE YELLOW (YELLOW); *KETONES,URINE NEGATIVE (NEGATIVE); *PROTEIN,URINE 2+ (NEGATIVE); *UROBILINOGEN,URINE 0.2 E.U./dl (NORMAL); LEUKOCYTE ESTERASE ,URINE 2+ (NEGATIVE); NITRITE, URINE NEGATIVE (NEGATIVE); UGLUCOSE NEGATIVE (NEGATIVE)
[2025-08-22 10:20] LABS: SQUAMOUS EPITHELIAL CELL,UR NONE SEEN /HPF (NONE SEEN)
[2025-08-23] VITALS (45 sets, daily range): BP systolic 85–170; BP diastolic 50–108; TEMP 98.4–99.4; O2SAT 90–100
[2025-08-23 05:07] LABS: PLATELET COUNT (AUTO) 189 K/uL (152-348); RED CELL DISTRIBUTION WIDTH 16.5 % (12.1-16.2); WHITE BLOOD COUNT (AUTO) 6.5 K/uL (3.6-10.2)
[2025-08-23 05:12] LABS: RED BLOOD CELL COUNT(AUTO) 2.42 MIL/uL (4.06-5.63)
[2025-08-23 05:17] LABS: CREATININE 1.0 mg/dL (0.6-1.3); SODIUM SERUM 140 mmol/L (136-145); UREA NITROGEN, BLOOD 73 mg/dL (7-18)
[2025-08-23] MEDS: SODIUM ZIRCONIUM CYCLOSILICATE 10 GM POWD.PACK PO ONE (08:43)
[2025-08-23] MEDS: DILTIAZEM HCL 25 MG IV IV ONE (21:56)
[2025-08-23] MEDS ORDERED: DILTIAZEM HCL 25 MG IV ONE (21:58)
[2025-08-23] MEDS: DILTIAZEM HCL IV 125 MG in IV NORMAL SALINE 100 ML IV PRN (22:21)
[2025-08-23] MEDS ORDERED: FOSFOMYCIN TROMETHAMINE 3 GM PACKET ONE (22:49)
[2025-08-23] MEDS: FOSFOMYCIN TROMETHAMINE 3 GM PACKET PO ONE (23:35)
[2025-08-24] VITALS (67 sets, daily range): BP systolic 78–190; BP diastolic 49–138; TEMP 98.1–99.2; O2SAT 94–100
[2025-08-24 00:12] LABS: ABG BASE EXCESS 4.2 mmol/L (-2.0-3.0); ABG HCO3 31.2 mmol/L (21.0-28.0); ABG PCO2 64.9 mmHg (35.0-48.0); ABG PH 7.300 (7.350-7.450); ABG PO2 148.7 mmHg (83.0-108.0); ABG SITE LEFT RADIAL; ABG TOTAL HEMOGLOBIN 7.2 G/dL (13.5-17.5); AaDO2 98.6 mmHg; FIO2 40.0 %; FLOW, BLOOD GAS 5.00 L/min (0.00-30.00)
[2025-08-24] MEDS: NOREPINEPHRINE 8MG/NS 250ML 250 ML IV PRN (00:39)
[2025-08-24 05:02] LABS: PLATELET COUNT (AUTO) 209 K/uL (152-348); RED BLOOD CELL COUNT(AUTO) 2.85 MIL/uL (4.06-5.63); RED CELL DISTRIBUTION WIDTH 16.1 % (12.1-16.2); WHITE BLOOD COUNT (AUTO) 5.4 K/uL (3.6-10.2)
[2025-08-24 05:16] LABS: CREATININE 1.0 mg/dL (0.6-1.3); SODIUM SERUM 144 mmol/L (136-145); UREA NITROGEN, BLOOD 73 mg/dL (7-18)
[2025-08-24 06:22] LABS: ABG BASE EXCESS 7.0 mmol/L (-2.0-3.0); ABG HCO3 32.7 mmol/L (21.0-28.0); ABG PCO2 52.7 mmHg (35.0-48.0); ABG PH 7.410 (7.350-7.450); ABG PO2 88.7 mmHg (83.0-108.0); ABG SITE LEFT RADIAL; ABG TOTAL HEMOGLOBIN 9.4 G/dL (13.5-17.5); AaDO2 96.7 mmHg; FIO2 32.0 %; FLOW, BLOOD GAS 3.00 L/min (0.00-30.00)
[2025-08-24] MEDS: FUROSEMIDE 20 MG/2 ML VIAL IV SCH (08:36)
[2025-08-24] MEDS: DILTIAZEM HCL CD 120 MG CAP.SR.24H PO SCH (09:05)
[2025-08-24] MEDS: NEPRO 1000 ML GT PRN (12:25)
[2025-08-24] MEDS: MAGNESIUM HYDROXIDE 30 ML LIQUID UDC PO PRN (17:30)
[2025-08-25] VITALS (44 sets, daily range): BP systolic 121–169; BP diastolic 55–89; TEMP 98.2–99.1; O2SAT 93–100
[2025-08-25 05:36] LABS: PLATELET COUNT (AUTO) 228 K/uL (152-348); RED BLOOD CELL COUNT(AUTO) 3.06 MIL/uL (4.06-5.63); RED CELL DISTRIBUTION WIDTH 16.4 % (12.1-16.2); WHITE BLOOD COUNT (AUTO) 6.4 K/uL (3.6-10.2)
[2025-08-25 05:43] LABS: ABG BASE EXCESS 11.5 mmol/L (-2.0-3.0); ABG HCO3 36.4 mmol/L (21.0-28.0); ABG PCO2 50.5 mmHg (35.0-48.0); ABG PH 7.476 (7.350-7.450); ABG PO2 81.8 mmHg (83.0-108.0); ABG SITE RIGHT BRACHIAL; ABG TOTAL HEMOGLOBIN 9.0 G/dL (13.5-17.5); AaDO2 96.5 mmHg; FIO2 32.0 %; FLOW, BLOOD GAS 3.00 L/min (0.00-30.00)
[2025-08-25 05:44] LABS: CREATININE 1.1 mg/dL (0.6-1.3); SODIUM SERUM 145 mmol/L (136-145)
[2025-08-25 05:49] LABS: UREA NITROGEN, BLOOD 80 mg/dL (7-18)
[2025-08-25] MEDS ORDERED: DEXTROSE 50% 50 ML DISP.SYRIN IV PRN (20:15)
[2025-08-26] VITALS (14 sets, daily range): BP systolic 111–151; BP diastolic 46–72; TEMP 98–99.3; O2SAT 95–100
[2025-08-26] MEDS: BLOOD SUGAR DIAGNOSTIC 1 EACH STRIP VI SCH (00:09)
[2025-08-26] MEDS: INSULIN REGULAR, HUMAN 1000 UNIT/10 ML VIAL SQ PRN (00:11)
[2025-08-26 06:38] LABS: PLATELET COUNT (AUTO) 226 K/uL (152-348); RED BLOOD CELL COUNT(AUTO) 2.91 MIL/uL (4.06-5.63); RED CELL DISTRIBUTION WIDTH 16.1 % (12.1-16.2); WHITE BLOOD COUNT (AUTO) 7.2 K/uL (3.6-10.2)
[2025-08-26 07:06] LABS: CREATININE 1.0 mg/dL (0.6-1.3); SODIUM SERUM 147 mmol/L (136-145)
[2025-08-26 07:23] LABS: UREA NITROGEN, BLOOD 81 mg/dL (7-18)
[2025-08-26] MEDS ORDERED: MAGNESIUM HYDROXIDE 30 ML LIQUID UDC GT PRN (09:31)
[2025-08-26] MEDS: DILTIAZEM HCL 30 MG TABLET GT SCH (11:14)
[2025-08-26] MEDS: PREGABALIN 50 MG CAPSULE GT SCH (16:38)
[2025-08-26] MEDS: SENNOSIDES 1 TABLET GT SCH (20:33)
[2025-08-26] MEDS: METOPROLOL TARTRATE 50 MG TABLET GT SCH (20:34)
[2025-08-26] MEDS: ACETAMINOPHEN 650 MG/20.3 ML LIQUID UDC GT PRN (20:35)
[2025-08-26] MEDS: HYDROCODONE/APAP 10-325 MG TABLET GT PRN (22:13)
[2025-08-27] VITALS (11 sets, daily range): BP systolic 133–152; BP diastolic 55–70; TEMP 98.2–98.9; O2SAT 95–100
[2025-08-27 06:30] LABS: ABG BASE EXCESS 9.2 mmol/L (-2.0-3.0); ABG HCO3 34.3 mmol/L (21.0-28.0); ABG PCO2 50.6 mmHg (35.0-48.0); ABG PH 7.449 (7.350-7.450); ABG PO2 82.0 mmHg (83.0-108.0); ABG SITE RIGHT BRACHIAL; ABG TOTAL HEMOGLOBIN 8.3 G/dL (13.5-17.5); AaDO2 96.3 mmHg; FIO2 28.0 %; FLOW, BLOOD GAS 2.00 L/min (0.00-30.00)
[2025-08-27 06:33] LABS: PLATELET COUNT (AUTO) 221 K/uL (152-348); RED BLOOD CELL COUNT(AUTO) 2.71 MIL/uL (4.06-5.63); RED CELL DISTRIBUTION WIDTH 16.5 % (12.1-16.2); WHITE BLOOD COUNT (AUTO) 7.9 K/uL (3.6-10.2)
[2025-08-27 06:45] LABS: CREATININE 1.3 mg/dL (0.6-1.3); SODIUM SERUM 146 mmol/L (136-145)
[2025-08-27 06:57] LABS: UREA NITROGEN, BLOOD 92 mg/dL (7-18)
[2025-08-27] MEDS: FUROSEMIDE 40 MG TABLET PO SCH (08:10)
[2025-08-27] MEDS: FINASTERIDE 5 MG TABLET GT SCH (08:10)
[2025-08-27] MEDS ORDERED: GOLYTELY 4000 ML BOTTLE PO ONE (17:00)
[2025-08-27] MEDS: GOLYTELY 4000 ML BOTTLE PO ONE (17:23)
[2025-08-27] MEDS: ACETYLCYSTEINE 20% 800 MG/4 ML VIAL NEB SCH (19:21)
[2025-08-28] VITALS (15 sets, daily range): BP systolic 143–177; BP diastolic 59–78; TEMP 97.6–98.7; O2SAT 97–100
[2025-08-28 07:19] LABS: PLATELET COUNT (AUTO) 205 K/uL (152-348); RED BLOOD CELL COUNT(AUTO) 2.85 MIL/uL (4.06-5.63); RED CELL DISTRIBUTION WIDTH 16.2 % (12.1-16.2); WHITE BLOOD COUNT (AUTO) 6.8 K/uL (3.6-10.2)
[2025-08-28 07:31] LABS: CREATININE 1.0 mg/dL (0.6-1.3); SODIUM SERUM 147 mmol/L (136-145)
[2025-08-28 07:52] LABS: UREA NITROGEN, BLOOD 95 mg/dL (7-18)
[2025-08-28] MEDS ORDERED: DEXAMETHASONE SOD PHOSPHATE 4 MG INJ ONE (20:30)
[2025-08-28] MEDS ORDERED: PROPOFOL 200 MG/20 ML BOTTLE ONE (20:30)
[2025-08-28] MEDS ORDERED: [UNRECOGNIZED DRUG - OTHER] IJ ONE (20:30)
[2025-08-28] MEDS ORDERED: LIDOCAINE-MPF 2% 5 ML VIAL ONE (20:30)
[2025-08-29] VITALS (12 sets, daily range): BP systolic 101–163; BP diastolic 41–81; TEMP 97.6–98.4; O2SAT 96–100
[2025-08-29] MEDS: LORAZEPAM 1 MG TABLET GT PRN (05:20)
[2025-08-29 06:50] LABS: PLATELET COUNT (AUTO) 202 K/uL (152-348); RED BLOOD CELL COUNT(AUTO) 2.78 MIL/uL (4.06-5.63); RED CELL DISTRIBUTION WIDTH 16.3 % (12.1-16.2); WHITE BLOOD COUNT (AUTO) 6.7 K/uL (3.6-10.2)
[2025-08-29 07:00] LABS: CREATININE 0.9 mg/dL (0.6-1.3); SODIUM SERUM 145 mmol/L (136-145); UREA NITROGEN, BLOOD 57 mg/dL (7-18)
[2025-08-29] MEDS: POTASSIUM CHLORIDE 20 MEQ POWDER PACKET GT ONE (11:30)
[2025-08-29] MEDS ORDERED: NEPRO 1000 ML GT PRN (11:30)
[2025-08-30] VITALS (11 sets, daily range): BP systolic 130–149; BP diastolic 53–64; TEMP 97.8–98.2; O2SAT 96–99
[2025-08-30 07:20] LABS: PLATELET COUNT (AUTO) 179 K/uL (152-348); RED BLOOD CELL COUNT(AUTO) 2.64 MIL/uL (4.06-5.63); RED CELL DISTRIBUTION WIDTH 16.0 % (12.1-16.2); WHITE BLOOD COUNT (AUTO) 6.9 K/uL (3.6-10.2)
[2025-08-30 07:23] LABS: CREATININE 0.9 mg/dL (0.6-1.3); SODIUM SERUM 149 mmol/L (136-145); UREA NITROGEN, BLOOD 65 mg/dL (7-18)
[2025-08-30] MEDS: POTASSIUM CHLORIDE 20 MEQ POWDER PACKET GT ONE (09:52)
[2025-08-31] VITALS (13 sets, daily range): BP systolic 121–191; BP diastolic 56–79; TEMP 98–99.6; O2SAT 93–99
[2025-08-31 05:25] LABS: ABG BASE EXCESS 10.8 mmol/L (-2.0-3.0); ABG HCO3 36.4 mmol/L (21.0-28.0); ABG PCO2 55.2 mmHg (35.0-48.0); ABG PH 7.437 (7.350-7.450); ABG PO2 57.9 mmHg (83.0-108.0); ABG SITE RIGHT BRACHIAL; ABG TOTAL HEMOGLOBIN 9.2 G/dL (13.5-17.5); AaDO2 90.4 mmHg; FIO2 28.0 %; FLOW, BLOOD GAS 2.00 L/min (0.00-30.00)
[2025-08-31 07:11] LABS: PLATELET COUNT (AUTO) 175 K/uL (152-348); RED BLOOD CELL COUNT(AUTO) 2.84 MIL/uL (4.06-5.63); RED CELL DISTRIBUTION WIDTH 15.9 % (12.1-16.2); WHITE BLOOD COUNT (AUTO) 7.3 K/uL (3.6-10.2)
[2025-08-31 07:23] LABS: CREATININE 0.9 mg/dL (0.6-1.3); SODIUM SERUM 149 mmol/L (136-145); UREA NITROGEN, BLOOD 59 mg/dL (7-18)
[2025-08-31] MEDS: FREE WATER VIA TUBE FEEDING GT SCH (08:33)
[2025-08-31] MEDS: POTASSIUM CHLORIDE 20 MEQ POWDER PACKET GT ONE (09:30)
[2025-09-01] VITALS (13 sets, daily range): BP systolic 105–173; BP diastolic 55–85; TEMP 97.8–99.2; O2SAT 93–100
[2025-09-01 06:41] LABS: PLATELET COUNT (AUTO) 168 K/uL (152-348); RED BLOOD CELL COUNT(AUTO) 2.93 MIL/uL (4.06-5.63); RED CELL DISTRIBUTION WIDTH 15.9 % (12.1-16.2); WHITE BLOOD COUNT (AUTO) 7.5 K/uL (3.6-10.2)
[2025-09-01 06:54] LABS: CREATININE 0.8 mg/dL (0.6-1.3); SODIUM SERUM 145 mmol/L (136-145); UREA NITROGEN, BLOOD 59 mg/dL (7-18)
[2025-09-02] VITALS (12 sets, daily range): BP systolic 120–143; BP diastolic 51–62; TEMP 98–98.4; O2SAT 95–100
[2025-09-02 07:21] LABS: PLATELET COUNT (AUTO) 172 K/uL (152-348); RED BLOOD CELL COUNT(AUTO) 2.79 MIL/uL (4.06-5.63); RED CELL DISTRIBUTION WIDTH 16.2 % (12.1-16.2); WHITE BLOOD COUNT (AUTO) 10.3 K/uL (3.6-10.2)
[2025-09-02 07:23] LABS: CREATININE 1.3 mg/dL (0.6-1.3); SODIUM SERUM 142 mmol/L (136-145)
[2025-09-02 07:31] LABS: UREA NITROGEN, BLOOD 82 mg/dL (7-18)
[2025-09-02 08:35] LABS: ABG BASE EXCESS 9.5 mmol/L (-2.0-3.0); ABG HCO3 34.5 mmol/L (21.0-28.0); ABG PCO2 50.6 mmHg (35.0-48.0); ABG PH 7.452 (7.350-7.450); ABG PO2 67.5 mmHg (83.0-108.0); ABG SITE RIGHT BRACHIAL; ABG TOTAL HEMOGLOBIN 7.9 G/dL (13.5-17.5); AaDO2 94.0 mmHg; FIO2 22.0 %; FLOW, BLOOD GAS 0.50 L/min (0.00-30.00)
[2025-09-03] VITALS (13 sets, daily range): BP systolic 121–171; BP diastolic 56–80; TEMP 97–98.6; O2SAT 95–100
[2025-09-03 06:58] LABS: PLATELET COUNT (AUTO) 174 K/uL (152-348); RED BLOOD CELL COUNT(AUTO) 3.03 MIL/uL (4.06-5.63); RED CELL DISTRIBUTION WIDTH 15.7 % (12.1-16.2); WHITE BLOOD COUNT (AUTO) 8.5 K/uL (3.6-10.2)
[2025-09-03 07:06] LABS: CREATININE 1.1 mg/dL (0.6-1.3); SODIUM SERUM 141 mmol/L (136-145); UREA NITROGEN, BLOOD 72 mg/dL (7-18)
[2025-09-03] MEDS: POTASSIUM CHLORIDE 20 MEQ POWDER PACKET GT ONE (09:08)
[2025-09-04] VITALS (10 sets, daily range): BP systolic 121–148; BP diastolic 60–73; TEMP 98–98.7; O2SAT 96–99
[2025-09-04 07:01] LABS: PLATELET COUNT (AUTO) 172 K/uL (152-348); RED BLOOD CELL COUNT(AUTO) 2.83 MIL/uL (4.06-5.63); RED CELL DISTRIBUTION WIDTH 15.8 % (12.1-16.2); WHITE BLOOD COUNT (AUTO) 7.6 K/uL (3.6-10.2)
[2025-09-04 07:32] LABS: CREATININE 1.0 mg/dL (0.6-1.3); SODIUM SERUM 136 mmol/L (136-145); UREA NITROGEN, BLOOD 71 mg/dL (7-18)
[2025-09-04] MEDS: MIRALAX 17 GM POWD.PACK PO SCH (16:11)
[2025-09-05] VITALS (15 sets, daily range): BP systolic 109–156; BP diastolic 52–74; TEMP 97.6–98.8; O2SAT 96–100
[2025-09-05 06:34] LABS: PLATELET COUNT (AUTO) 192 K/uL (152-348); RED BLOOD CELL COUNT(AUTO) 3.11 MIL/uL (4.06-5.63); RED CELL DISTRIBUTION WIDTH 15.9 % (12.1-16.2); WHITE BLOOD COUNT (AUTO) 7.5 K/uL (3.6-10.2)
[2025-09-05 06:44] LABS: CREATININE 1.1 mg/dL (0.6-1.3); SODIUM SERUM 138 mmol/L (136-145); UREA NITROGEN, BLOOD 75 mg/dL (7-18)
[2025-09-14] MEDS ORDERED: LIDOCAINE-MPF 2% 5 ML VIAL ONE (17:00)
[2025-09-14] MEDS ORDERED: PROPOFOL 200 MG/20 ML BOTTLE ONE (17:00)
[2025-09-14] MEDS ORDERED: CEFAZOLIN 1 G VIAL ONE (17:00)
== END 2025-09-05 21:40 | disposition short-term general hospital (02) | DRG 951 ==
LOC: ER 17:22 → ICU IN 07-21 01:26 → TELE3 07-22 21:09 → MEDSURG3 07-23 11:20 → ICU IN 07-23 13:15 → TELE-TD3 07-24 08:11 → TELE3 07-24 09:55 → MEDSURG3 07-27 09:30 → CCU 07-31 13:47 → TELE-TD3 08-25 19:41 → TELE3 08-30 08:58
PROVIDERS: ADMIT Internal Medicine; ATTEND Internal Medicine
PROC: 30233N1 Transfusion of Nonautologous Red Blood Cells into Peripheral Vein, Percutaneous Approach (ICD-10-PCS; principal; 2025-07-21)
PROC: 0DJ08ZZ Inspection of Upper Intestinal Tract, Via Natural or Artificial Opening Endoscopic (ICD-10-PCS; 2025-07-23)
PROC: 06HY33Z Insertion of Infusion Device into Lower Vein, Percutaneous Approach (ICD-10-PCS; 2025-07-29)
PROC: 5A1D70Z Performance of Urinary Filtration, Intermittent, Less than 6 Hours Per Day (ICD-10-PCS; 2025-07-29)
PROC: 05HB33Z Insertion of Infusion Device into Right Basilic Vein, Percutaneous Approach (ICD-10-PCS; 2025-07-29)
PROC: 0BH17EZ Insertion of Endotracheal Airway into Trachea, Via Natural or Artificial Opening (ICD-10-PCS; 2025-07-31)
PROC: 5A1935Z Respiratory Ventilation, Less than 24 Consecutive Hours (ICD-10-PCS; 2025-07-31)
PROC: 0J9Q0ZZ Drainage of Right Foot Subcutaneous Tissue and Fascia, Open Approach (ICD-10-PCS; 2025-08-03)
PROC: 5A1945Z Respiratory Ventilation, 24-96 Consecutive Hours (ICD-10-PCS; 2025-08-12)
PROC: 0BH17EZ Insertion of Endotracheal Airway into Trachea, Via Natural or Artificial Opening (ICD-10-PCS; 2025-08-12)
PROC: 0DH63UZ Insertion of Feeding Device into Stomach, Percutaneous Approach (ICD-10-PCS; 2025-08-15)
PROC: 05H933Z Insertion of Infusion Device into Right Brachial Vein, Percutaneous Approach (ICD-10-PCS; 2025-08-20)
PROC: 0DBL8ZX Excision of Transverse Colon, Via Natural or Artificial Opening Endoscopic, Diagnostic (ICD-10-PCS; 2025-08-28)
PROC: 3E0H8KZ Introduction of Other Diagnostic Substance into Lower GI, Via Natural or Artificial Opening Endoscopic (ICD-10-PCS; 2025-08-28)
DX: N17.0 Acute kidney failure with tubular necrosis (principal); J96.02 Acute respiratory failure with hypercapnia; G93.41 Metabolic encephalopathy; I13.2 Hypertensive heart and chronic kidney disease with heart failure and with stage 5 chronic kidney disease, or end stage renal disease; J96.01 Acute respiratory failure with hypoxia; I50.23 Acute on chronic systolic (congestive) heart failure; N18.6 End stage renal disease; K57.31 Diverticulosis of large intestine without perforation or abscess with bleeding; Z79.01 Long term (current) use of anticoagulants; L03.115 Cellulitis of right lower limb; L03.031 Cellulitis of right toe; L02.415 Cutaneous abscess of right lower limb; J45.901 Unspecified asthma with (acute) exacerbation; E11.51 Type 2 diabetes mellitus with diabetic peripheral angiopathy without gangrene; I70.233 Atherosclerosis of native arteries of right leg with ulceration of ankle; I69.354 Hemiplegia and hemiparesis following cerebral infarction affecting left non-dominant side; F32.A Depression, unspecified; D64.9 Anemia, unspecified; K63.3 Ulcer of intestine; K31.A22 Gastric intestinal metaplasia with high grade dysplasia; N18.4 Chronic kidney disease, stage 4 (severe); K56.690 Other partial intestinal obstruction; I21.A1 Myocardial infarction type 2; L97.328 Non-pressure chronic ulcer of left ankle with other specified severity; I70.243 Atherosclerosis of native arteries of left leg with ulceration of ankle; L97.315 Non-pressure chronic ulcer of right ankle with muscle involvement without evidence of necrosis; I25.5 Ischemic cardiomyopathy; E11.22 Type 2 diabetes mellitus with diabetic chronic kidney disease; E87.5 Hyperkalemia; E78.5 Hyperlipidemia, unspecified; E87.0 Hyperosmolality and hypernatremia; E87.1 Hypo-osmolality and hyponatremia; E83.39 Other disorders of phosphorus metabolism; E87.6 Hypokalemia; I48.0 Paroxysmal atrial fibrillation; K21.9 Gastro-esophageal reflux disease without esophagitis; K63.5 Polyp of colon; J98.11 Atelectasis; K29.70 Gastritis, unspecified, without bleeding; E86.0 Dehydration; I47.10 Supraventricular tachycardia, unspecified; N40.0 Benign prostatic hyperplasia without lower urinary tract symptoms; Z86.718 Personal history of other venous thrombosis and embolism; I25.10 Atherosclerotic heart disease of native coronary artery without angina pectoris; I25.2 Old myocardial infarction; I70.0 Atherosclerosis of aorta; Z79.4 Long term (current) use of insulin; Z79.82 Long term (current) use of aspirin; Z79.899 Other long term (current) drug therapy; Z53.09 Procedure and treatment not carried out because of other contraindication; D68.59 Other primary thrombophilia; E87.4 Mixed disorder of acid-base balance; R13.10 Dysphagia, unspecified; T46.4X5A Adverse effect of angiotensin-converting-enzyme inhibitors, initial encounter; Z16.12 Extended spectrum beta lactamase (ESBL) resistance; B35.1 Tinea unguium; B96.1 Klebsiella pneumoniae [K. pneumoniae] as the cause of diseases classified elsewhere
CPT/HCPCS: 36415; 36600; 43761; 70030-TC; 71045; 73590; 73610; 73630; 73700; 73721; 74018; 76604; 76770; 82803; 83550; 83605; 83735; 83970; 84100; 84155; 84165; 84300; 84478; 84484; 85018; 85025; 85610; 85730; 86704; 86705; 86706; 86803; 86850; 86900; 86901; 86920; 87040; 87070; 87077; 87086; 87340; 87806; 93005; 93307; 93880; 94002; 94003; 94640; 94660; 94760; A4606; A4663; A6209; A6213; G0378; J0278; J0282; J0360; J0690; J0692; J0696; J1100; J1120; J1815; J1938; J2060; J2185; J2270; J2405; J2470; J2543; J2919; J3010; J3411; J3475; J3480; J3490; J3590; J7040; J7042; J7050; J7060; J7070; J7120; J7614; P9016; P9047; Q9963